=== PATIENT | male | born 1950 | race Caucasian/White ===

== ENCOUNTER 2016-09-30 15:26 | Emergency (ER) | payer MEDICARE ==
[2016-09-30 15:49] VITALS: TEMP 98.3
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
[2016-09-30 17:25] LABS: Appearance,Urine Clear (Clear); Bacteria,Urine Rare /hpf; Bilirubin,Urine Negative (Negative); Glucose,Urine (UA) Negative (Negative); Ketones,Urine Negative (Negative); Leukocyte Esterase,Urine Negative (Negative); Mucus,Urine Rare /hpf; Nitrite,Urine Negative (Negative); Particle Count 1410; Protein,Urine 1+ (Negative); RBC,Urine <1 /hpf (0-5); Specific Gravity,Urine 1.017 (1.001-1.035); UA Billing (MACRO vs. MICRO) MICRO; Urobilinogen,Urine <2.0 mg/dL (<2.0); WBC,Urine 1 /hpf (0-5)
--- NOTE | 2016-09-30 17:37 | XR ---
EXAMINATION TYPE: XR lumbar spine 2 or 3V DATE OF EXAM: 09/30/2016 5:26 PM COMPARISON: NONE HISTORY: Back pain TECHNIQUE: 3 views FINDINGS: The vertebra have fairly normal alignment. There is mild spurring of the endplates througho ut the lumbar spine. There is no compression fracture. Posterior elements are intact. Sacroiliac join ts appear normal. There is slight narrowing at L3-4 disc space. IMPRESSION: Mild spondylotic changes. No fracture.
[2016-09-30] MEDS ORDERED: KETOROLAC 60 MG/2 ML VIAL IM STA (17:48)
[2016-09-30] MEDS ORDERED: amLODIPine 5 MG TAB PO STA (18:55)
[2016-09-30 19:05] VITALS: BP 177/97; PULSE 83; RESP 16
== END 2016-09-30 18:59 | disposition home or self-care (01) ==
LOC: EC 15:26
DX: M54.5 Low back pain (principal); R10.9 Unspecified abdominal pain; M25.551 Pain in right hip; Z79.899 Other long term (current) drug therapy
CPT/HCPCS: 81001; 87086; 72100; 99284; 96372; J1885

== ENCOUNTER 2016-10-19 10:37 | Inpatient (IN) | payer MEDICARE ==
--- NOTE | 2016-10-19 10:52 | ED ---
SOB HPI - General Chief Complaint: Shortness of Breath Stated Complaint: SOB Time Seen by Provider: 10/19/16 10:40 Source: patient, EMS Mode of arrival: EMS Limitations: no limitations - History of Present Illness Initial Comments: Patient was seen in Dr. Ball of his states this morning he was sent from Dr. Ball office and is complaining about shortness of breath also was seen here the chest pain he is quite vague about his chest pain he said it's worse with exertion been coughing up some phlegm and chest pain gets worse when he takes a deep breath. Denies any fever and chills abdominal pain any frequency urgency dysuria denies any symptoms of TIA or CVA - Related Data Home Medications Medication Instructions Recorded Confirmed Acetaminophen Tab [Tylenol Tab] 650 mg PO Q6H PRN 09/30/16 10/19/16 Krill Oil 500 mg PO DAILY 09/30/16 10/19/16 Multivitamins, Thera [Multivitamin 1 tab PO DAILY 09/30/16 10/19/16 (formulary)] Super Beta Prostate Support 1 tab PO DAILY 09/30/16 10/19/16 Previous Rx's Medication Instructions Recorded Cyclobenzaprine [Flexeril] 10 mg PO TID #20 tab 09/30/16 Naproxen 500 mg PO Q12HR 14 Days 09/30/16 amLODIPine [Norvasc] 5 mg PO DAILY #30 tab 09/30/16 Allergies Allergy/AdvReac Type Severity Reaction Status Date / Time No Known Allergies Allergy Verified 10/19/16 11:44 Review of Systems ROS Statement: Those systems with pertinent positive or pertinent negative responses have been documented in the HPI. ROS Other: All systems not noted in ROS Statement are negative. Past Medical History Past Medical History: No Reported History History of Any Multi-Drug Resistant Organisms: None Reported Past Surgical History: No Surgical Hx Reported Past Psychological History: No Psychological Hx Reported Smoking Status: Never smoker Past Alcohol Use History: None Reported Past Drug Use History: None Reported General Exam - General Exam Comments Initial Comments: General: The patient is awake and alert, in via distress Skin: Skin is warm and dry and no rashes or lesions are noted. Eye: Pupils are equal, round and reactive to light, extra-ocular movements are intact; there is normal conjunctiva bilaterally. Ears, nose, mouth and throat: There are moist mucous membranes and no oral lesions. Neck: The neck is supple, there is no tenderness Cardiovascular: There is a regular rate and rhythm. No murmur, rub or gallop is appreciated. Respiratory: To auscultation bilateral, raccoons bilaterally Gastrointestinal: Soft, non-distended, non-tender abdomen without masses or organomegaly noted. There is no rebound or guarding present. Bowel sounds are unremarkable. Back: There is no tenderness to palpation in the midline. There is no obvious deformity. Musculoskeletal: Normal ROM, no tenderness, There is no pedal edema. There is no calf tenderness or swelling. No cords were appreciated. Neurological: CN II-XII intact, Cranial nerves III through XII are intact. There are no obvious motor or sensory deficits. Coordination appears grossly intact. Speech is normal. Psychiatric: Cooperative, appropriate mood & affect, normal judgment. Limitations: no limitations Course Vital Signs 10/19/16 10/19/16 10/19/16 10:40 13:22 13:27 Temperature 97.7 F Pulse Rate 90 99 Respiratory 26 H 32 H Rate Blood Pressure 158/113 O2 Sat by Pulse 96 96 Oximetry EKG is normal sinus rhythm ventricular rate is 86 MN interval is 152 QRS duration is 88 QT/QTC 372/445 review of this EKG has some artifacts in leads [address] elevation or ST depression noticed any other lites Medical Decision Making - Lab Data Result diagrams: 10/19/16 10:54 10/19/16 10:54 Lab Results 10/19/16 10/19/16 10/19/16 Range/Units 10:54 10:54 10:54 WBC 21.0 H (3.8-10.6) k/uL RBC 4.89 (4.30-5.90) m/uL Hgb 14.3 (13.0-17.5) gm/dL Hct 42.1 (39.0-53.0) % MCV 86.1 (80.0-100.0) fL MCH 29.3 (25.0-35.0) pg MCHC 34.0 (31.0-37.0) g/dL RDW 13.3 (11.5-15.5) % Plt Count 403 (150-450) k/uL Neutrophils % 94 % Lymphocytes % 2 % Monocytes % 4 % Eosinophils % 0 % Basophils % 0 % Neutrophils # 19.6 H (1.3-7.7) k/uL Lymphocytes # 0.3 L (1.0-4.8) k/uL Monocytes # 0.8 (0-1.0) k/uL Eosinophils # 0.0 (0-0.7) k/uL Basophils # 0.0 (0-0.2) k/uL PT (9.0-12.0) sec INR (<1.1) APTT (22.0-30.0) sec D-Dimer (<0.60) mg/L FEU Sodium 138 (137-145) mmol/L Potassium 6.0 H (3.5-5.1) mmol/L Chloride 102 (98-107) mmol/L Carbon Dioxide 13 L (22-30) mmol/L Anion Gap 23 mmol/L BUN 173 H* (9-20) mg/dL Creatinine 11.90 H* (0.66-1.25) mg/dL Est GFR (MDRD) Af Amer 5 (>60 ml/min/1.73 sqM) Est GFR (MDRD) Non-Af 4 (>60 ml/min/1.73 sqM) Glucose 150 H (74-99) mg/dL Calcium 9.4 (8.4-10.2) mg/dL Total Bilirubin 0.5 (0.2-1.3) mg/dL AST 28 (17-59) U/L ALT 82 H (21-72) U/L Alkaline Phosphatase 104 (38-126) U/L Total Creatine Kinase 214 H (55-170) U/L CK-MB (CK-2) 13.8 H* (0.0-2.4) ng/mL CK-MB (CK-2) Rel Index 6.4 Troponin I <0.012 (0.000-0.034) ng/mL NT-Pro-B Natriuret Pep pg/mL Total Protein 7.2 (6.3-8.2) g/dL Albumin 3.6 (3.5-5.0) g/dL 10/19/16 10/19/16 Range/Units 10:54 10:54 WBC (3.8-10.6) k/uL RBC (4.30-5.90) m/uL Hgb (13.0-17.5) gm/dL Hct (39.0-53.0) % MCV (80.0-100.0) fL MCH (25.0-35.0) pg MCHC (31.0-37.0) g/dL RDW (11.5-15.5) % Plt Count (150-450) k/uL Neutrophils % % Lymphocytes % % Monocytes % % Eosinophils % % Basophils % % Neutrophils # (1.3-7.7) k/uL Lymphocytes # (1.0-4.8) k/uL Monocytes # (0-1.0) k/uL Eosinophils # (0-0.7) k/uL Basophils # (0-0.2) k/uL PT 11.9 (9.0-12.0) sec INR 1.2 (<1.1) APTT 21.5 L (22.0-30.0) sec D-Dimer 4.36 H (<0.60) mg/L FEU Sodium (137-145) mmol/L Potassium (3.5-5.1) mmol/L Chloride (98-107) mmol/L Carbon Dioxide (22-30) mmol/L Anion Gap mmol/L BUN (9-20) mg/dL Creatinine (0.66-1.25) mg/dL Est GFR (MDRD) Af Amer (>60 ml/min/1.73 sqM) Est GFR (MDRD) Non-Af (>60 ml/min/1.73 sqM) Glucose (74-99) mg/dL Calcium (8.4-10.2) mg/dL Total Bilirubin (0.2-1.3) mg/dL AST (17-59) U/L ALT (21-72) U/L Alkaline Phosphatase (38-126) U/L Total Creatine Kinase (55-170) U/L CK-MB (CK-2) (0.0-2.4) ng/mL CK-MB (CK-2) Rel Index Troponin I (0.000-0.034) ng/mL NT-Pro-B Natriuret Pep 240 pg/mL Total Protein (6.3-8.2) g/dL Albumin (3.5-5.0) g/dL Critical Care Time Total Critical Care Time: 60 Critical Care Time: Is in came in with a severe distress, and initial labs showed white count of 21 with a significant left shift d-dimer is 1.35 his creatinine is 11.90 his BUN is 173 troponin is negative is a poor historian was started on Rocephin 2 g of Zithromax for pneumonia (do a trial of BiPAP for his CHF symptoms and examined Lasix 80 mg a feet diaphoresis then now considering his respiratory rate of 30 given need to come in to ICU so he could be evaluated by nephrology as well will need a pulmonary medicine on board Disposition Clinical Impression: Congestive heart failure, Pneumonia, Acute renal failure, Acute respiratory distress Disposition: ADMITTED IP TO THIS HOSP Condition: Fair
[2016-10-19 11:23] LABS: Basophils % (A) 0 %; CH 29.1; Eosinophils % (A) 0 %; HCT 42.1 % (39.0-53.0); HDW 2.76; HGB 14.3 gm/dL (13.0-17.5); Luc # (Auto) 0.16; Luc % (Auto) 1; Lymphocytes # (A) 0.3 k/uL (1.0-4.8); Lymphocytes % (A) 2 %; MCH 29.3 pg (25.0-35.0); MCV 86.1 fL (80.0-100.0); Mean Platelet Volume 7.2; Monocytes # (A) 0.8 k/uL (0-1.0); Monocytes % (A) 4 %; Neutrophils # (A) 19.6 k/uL (1.3-7.7); Neutrophils % (A) 94 %; RBC 4.89 m/uL (4.30-5.90); RDW 13.3 % (11.5-15.5); WBC (Perox) 20.26
[2016-10-19 11:29] LABS: Calcium 9.4 mg/dL (8.4-10.2); Total Bilirubin 0.5 mg/dL (0.2-1.3); Total Protein 7.2 g/dL (6.3-8.2)
[2016-10-19 11:31] LABS: INR 1.2 (<1.1); Prothrombin Time 11.9 sec (9.0-12.0)
--- NOTE | 2016-10-19 11:33 | XR ---
EXAMINATION TYPE: XR chest 2V DATE OF EXAM: 10/19/2016 11:19 AM COMPARISON: None HISTORY: 66-year-old male difficulty breathing TECHNIQUE: Frontal and lateral views FINDINGS: Right heart margin obscured by adjacent pleural parenchymal disease. Suspect moderate right pleural e ffusion with adjacent opacity. Mild interstitial prominence. IMPRESSION: 1. Correlate for possible mild CHF. 2. Moderate right pleural effusion with adjacent atelectasis and/or consolidation. Follow-up after tr eatment to ensure clearance.
[2016-10-19 11:41] LABS: Partial Thromboplastin Time 21.5 sec (22.0-30.0)
[2016-10-19 11:45] LABS: Creatine Kinase 214 U/L (55-170)
[2016-10-19 11:58] LABS: Troponin I <0.012 ng/mL (0.000-0.034)
[2016-10-19 12:04] LABS: Creatine Kinase MB 13.8 ng/mL (0.0-2.4)
[2016-10-19] MEDS ORDERED: IPRATROPIUM-ALBUTEROL 3 ML NEB INHALATION STA (13:23)
[2016-10-19] MEDS ORDERED: AZITHROMYCIN 500 MG in SODIUM CHLORIDE 0.9% 250 ML IVPB STA (13:28)
[2016-10-19] MEDS ORDERED: FUROSEMIDE 10 MG/ML 10 ML VIAL IV STA (13:29)
[2016-10-19] MEDS ORDERED: FUROSEMIDE 10 MG/ML 4 ML VIAL IV STA (13:29)
[2016-10-19] MEDS ORDERED: cefTRIAXone 2,000 MG in SODIUM CHLORIDE 0.9% 100 ML IVPB STA (13:29)
[2016-10-19] MEDS ORDERED: NALOXONE 0.4 MG/ML 1 ML VIAL IV PRN (13:35)
[2016-10-19] MEDS ORDERED: ACETAMINOPHEN TAB 325 MG TAB PO PRN (13:35)
[2016-10-19 15:31] LABS: Glucose,Whole Blood 141 mg/dL (75-99)
[2016-10-19] MEDS: IPRATROPIUM 0.5 MG/2.5 ML NEBU INHALATION SCH ×2 (15:34→19:35)
--- NOTE | 2016-10-19 17:42 | US ---
EXAMINATION TYPE: US kidneys/renal and bladder DATE OF EXAM: 10/19/2016 5:26 PM COMPARISON: NONE CLINICAL HISTORY: 66-year-old male back pain elevated creatinine 11.9. The exam performed portable in ICU. TECHNIQUE: Multiple sonographic images of the kidneys and bladder were obtained. FINDINGS: Right Kidney: 11.8 x 5.9 x 6.6 cm without hydronephrosis. There is a small 1.3 cm upper pole cortica l cyst. Left Kidney: 13.5 x 7.5 x 6.1 cm with [id number] hydronephrosis. Rail Switchman notes: No definit e stones seen, difficult to image left kidney as patient is morbidly obese and immobile. Bladder: Prominently urine distended. IMPRESSION: 1. Mild to moderate left-sided hydronephrosis. 2. Prominent urinary distention of the bladder.
[2016-10-19 17:46] LABS: Phosphorous 12.7 mg/dL (2.5-4.5)
[2016-10-19 17:48] LABS: Uric Acid 18.3 mg/dL (3.5-8.5)
[2016-10-19] MEDS: SODIUM BICARBONATE TAB 650 MG TAB PO SCH ×2 (18:11→21:30)
[2016-10-19] MEDS: CYCLOBENZAPRINE 10 MG TAB PO SCH ×2 (18:11→21:30)
[2016-10-19 18:19] LABS: Appearance,Urine Clear (Clear); Bacteria,Urine Rare /hpf; Bilirubin,Urine Negative (Negative); Glucose,Urine (UA) Negative (Negative); Ketones,Urine Negative (Negative); Leukocyte Esterase,Urine Trace (Negative); Nitrite,Urine Negative (Negative); Particle Count 1396; Protein,Urine Negative (Negative); RBC,Urine 3 /hpf (0-5); Specific Gravity,Urine 1.009 (1.001-1.035); UA Billing (MACRO vs. MICRO) MICRO; Urobilinogen,Urine <2.0 mg/dL (<2.0); WBC,Urine 1 /hpf (0-5)
[2016-10-19 20:53] LABS: Potassium 4.8 mmol/L (3.5-5.1)
[2016-10-19] MEDS: HEPARIN SODIUM,PORCINE 5,000 UNIT/ML 1 ML VIAL SQ SCH (21:30)
[2016-10-20 00:09] LABS: Calcium 9.3 mg/dL (8.4-10.2); Potassium 4.6 mmol/L (3.5-5.1)
[2016-10-20 05:05] LABS: Calcium 9.3 mg/dL (8.4-10.2); Magnesium 3.2 mg/dL (1.6-2.3); Phosphorous 7.7 mg/dL (2.5-4.5); Total Bilirubin 0.6 mg/dL (0.2-1.3); Total Protein 6.6 g/dL (6.3-8.2)
[2016-10-20 05:08] LABS: INR 1.2 (<1.1)
[2016-10-20 05:28] LABS: Basophils % (A) 0 %; CH 28.4; CHCM 31.5; Eosinophils # (A) 0.1 k/uL (0-0.7); Eosinophils % (A) 0 %; HCT 43.4 % (39.0-53.0); HDW 2.64; HGB 14.3 gm/dL (13.0-17.5); Luc # (Auto) 0.19; Luc % (Auto) 1; Lymphocytes # (A) 0.5 k/uL (1.0-4.8); Lymphocytes % (A) 4 %; MCH 29.8 pg (25.0-35.0); MCV 90.5 fL (80.0-100.0); Mean Platelet Volume 7.4; Monocytes # (A) 0.8 k/uL (0-1.0); Monocytes % (A) 6 %; Neutrophils # (A) 11.9 k/uL (1.3-7.7); Neutrophils % (A) 88 %; RBC 4.79 m/uL (4.30-5.90); RDW 13.4 % (11.5-15.5); WBC 13.5 k/uL (3.8-10.6); WBC (Perox) 14.48
[2016-10-20] MEDS: LEVALBUTEROL NEB (CONC) 1.25 MG/0.5 ML AMP INHALATION SCH ×3 (07:24→20:59)
[2016-10-20] MEDS: IPRATROPIUM 0.5 MG/2.5 ML NEBU INHALATION SCH ×3 (07:24→20:59)
--- NOTE | 2016-10-20 07:25 | XR ---
EXAMINATION TYPE: XR chest 1V portable DATE OF EXAM: 10/20/2016 6:35 AM Comparison: 10/29/2016 Clinical History: 66-year-old male with right pneumonia Findings: Right heart margin remains obscured by adjacent pleural parenchymal disease. Mild interstitial promin ence is unchanged. Redemonstrated moderate-sized right pleural effusion with adjacent atelectasis and /or consolidation. Impression: Overall similar moderate right pleural effusion with adjacent atelectasis and/or consolidation. Inter stitial prominence could be chronic or could reflect mild CHF.
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
[2016-10-20] MEDS: CYCLOBENZAPRINE 10 MG TAB PO SCH ×3 (09:17→21:38)
[2016-10-20] MEDS: CALCIUM ACETATE 667 MG CAP PO SCH ×3 (09:17→18:09)
[2016-10-20] MEDS: amLODIPine 5 MG TAB PO SCH (09:17)
[2016-10-20] MEDS: PANTOPRAZOLE 40 MG TABLET PO SCH ×2 (09:17→18:09)
[2016-10-20] MEDS: SODIUM BICARBONATE TAB 650 MG TAB PO SCH ×3 (09:18→21:38)
[2016-10-20] MEDS: HEPARIN SODIUM,PORCINE 5,000 UNIT/ML 1 ML VIAL SQ SCH ×2 (09:18→21:33)
[2016-10-20] MEDS: NYSTATIN 100,000 UNIT/ML SUSP 500,000 UNIT/5 ML CUP PO SCH ×4 (10:05→21:38)
[2016-10-20] MEDS: AZITHROMYCIN 500 MG in SODIUM CHLORIDE 0.9% 250 ML IVPB SCH (10:05)
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
--- NOTE | 2016-10-20 12:27 | CT ---
EXAMINATION TYPE: CT ChestAbdPelvis wo con DATE OF EXAM: 10/20/2016 11:44 AM COMPARISON: Correlation radiograph 10/22/2016 HISTORY: 66-year-old male with right sided pneumonia and hydronephrosis TECHNIQUE: Contiguous axial scanning of the chest, abdomen, and pelvis without IV contrast. Coronal a nd sagittal reconstructions performed. CT DLP: 1802.50 mGycm Automated exposure control for dose reduction was used. FINDINGS: CHEST: The heart is normal size without pericardial effusion. Very mild coronary vessel calcifications are p resent. Ascending aorta mildly aneurysmal at 4.0 cm; convention arch vessel branching anatomy. Borderline ane urysm upper descending thoracic aorta at 3.0 cm dilatation of the lower descending thoracic aorta 2.6 cm. No thoracic lymphadenopathy identified. There is a moderate free-flowing right-sided pleural effusion with atelectatic collapse of the right lower lobe. Subsegmental collapse may also extend to involve the lateral right middle lobe. Calcified granuloma right middle lobe. Some minimal patchy atelectasis at the left base. ABDOMEN: Noncontrast appearance of the liver, gallbladder, adrenal glands, spleen with couple small anterior s plenules, and atrophic pancreas show no gross abnormality. There is perinephric stranding on the right with stranding in the renal sinus region as well without appreciable hydronephrosis. No suspicious calcification along the course of either ureter. There is of mild to moderate hydronephrosis on the left as seen on recent ultrasound. There is an exo phytic 3.2 cm soft tissue density lesion from the lower pole of the left kidney Moderate-sized fatty umbilical hernia measuring 5.8 cm. There is mild fat stranding in this region th at could reflect mild inflammation. No abnormal fluid or mass effect onto the anterior abdominal wall . Some clustered prominent 7 mm left periaortic retroperitoneal lymph nodes are nonspecific. Otherwise, no mesenteric or retroperitoneal lymphadenopathy. Scattered mild to moderate stool. A few diverticula within the proximal sigmoid colon. Pelvis: Noriega catheter decompresses the bladder. There appears to be moderate circumferential wall thickening of the collapsed bladder with nondependent intraluminal air relating to indwelling catheter. The prostate gland is enlarged measuring 6.3 cm wide and 7.2 cm craniocaudal. No abnormal fluid collection in the pelvis or pelvic lymphadenopathy seen. Bones: Mild degenerative changes of the hips. Degenerative change at the left greater than right SI joints. Additional degenerative changes throughout the mid to lower lumbar spine with bridging anterior endpl ate spondylosis mid thoracic spine suggestive of DISH. No osseous destructive process. IMPRESSION: 1. MODERATE FREE-FLOWING RIGHT PLEURAL EFFUSION WITH COMPRESSIVE COLLAPSE OF THE RIGHT LOWER LOBE AND SUBSEGMENTAL ATELECTASIS LATERAL RIGHT MIDDLE LOBE. MOST IF NOT ALL OF THE RIGHT BASILAR OPACITY DAVON EARS TO RELATE TO THE COLLAPSE. CONSIDER DIAGNOSTIC AND THERAPEUTIC THORACENTESIS. 2. MARKED PROSTATOMEGALY (UP TO 7.2 CM). CORRELATE FOR BPH AND BLADDER OUTLET OBSTRUCTION. THE BLADDE R IS CURRENTLY DECOMPRESSED BY NORIEGA CATHETER BUT SHOWS WALL THICKENING SUGGESTING CHRONIC BLADDER WA LL HYPERTROPHY. 3. MILD TO MODERATE LEFT-SIDED HYDRONEPHROSIS. NO OBSTRUCTING CALCULUS IS SEEN. POSSIBLY SECONDARY TO BLADDER OBSTRUCTION. 4. ASYMMETRIC RIGHT-SIDED PERINEPHRIC STRANDING. CORRELATE FOR POSSIBLE PYELOSINUS BACKFLOW FROM A SM ALL CALYCEAL RUPTURE RELAXING THE COLLECTING SYSTEM VERSUS PYELONEPHRITIS. 5. INDETERMINATE 3.2 CM SOFT TISSUE LESION EXOPHYTIC FROM THE LOWER POLE LEFT KIDNEY. DIFFERENTIAL CO NSIDERATIONS INCLUDE SOLID MASS SUCH RCC OR A COMPLICATED CYST. THIS COULD NOT BE VISUALIZED ON UL TRASOUND. RECOMMEND MRI OR RENAL MASS PROTOCOL CT. 6. SOME CLUSTERED PROMINENT LEFT PARA-AORTIC LYMPH NODES IN THE RETROPERITONEUM MAY BE REACTIVE/POST INFLAMMATORY. A 3 MONTH FOLLOW-UP EXAM CAN REASSESS FOR STABILITY. 7. MILD ANEURYSM ASCENDING AORTA (4.0 CM).
--- NOTE | 2016-10-20 13:26 | NM ---
EXAMINATION TYPE: NM pul vent and perfuse DATE OF EXAM: 10/20/2016 1:15 PM COMPARISON: NONE HISTORY: Rule out PE, difficulty breathing, cough, wheezing, pneumonia TECHNIQUE: Utilizing inhalation of 71.1 mCi Tc 99m DTPA aerosol and intravenous injection of 5.5 mCi of Tc 99m MAA, ventilation and perfusion images are acquired post injection in multiple projections. FINDINGS: There is no evidence of moderate or large sized mismatched defects. There is a matched defect within the mid right lung. There is asymmetry within the lung perfusion and ventilation with greater ventilation perfusion on the left compared to the right. This exam is compared with the chest x-ray of 10/30/2016. No triple matched defects are evident. The a eration on the right compared to the left may be compatible with the ventilation/perfusion findings. IMPRESSION: Intermediate probability for pulmonary embolism
--- NOTE | 2016-10-20 13:56 | US ---
EXAMINATION TYPE: US chest DATE OF EXAM: 10/20/2016 1:29 PM COMPARISON: CXR in PACS CLINICAL HISTORY: pleural effusion. Right pleural effusion EXAM MEASUREMENTS: Right Pleural Effusion fluid pocket: 7.3 cm Right skin to fluid thickness: 4.7 cm Lung persistent in images Right side marked for possible thoracentesis outside the dept. Pulmonologists are able to review the images in the patient?s EMR. IMPRESSIONS: 1. Right pleural effusion
--- NOTE | 2016-10-20 13:57 | CONS ---
DATE OF CONSULTATION: 10/20/2016 REASON FOR CONSULTATION: General ICU care and care and sleep disorder breathing and sleep apnea and acute renal failure. HISTORY OF PRESENTING ILLNESS: Mr. Chloe Robbins is a morbidly obese 66-year-old male who was seen, evaluated and examined in the ICU. This patient recently started seeing Dr. Ball and has a history of hypertension. Patient presented into the emergency department with increasing shortness of breath, was admitted. Patient was sent from Dr. Ball' office related to that problem, has some intermittent chest pain and some cough as well. Patient was found to have been in acute renal failure and has been admitted to hospital. Poon catheter has been placed. Patient has been voiding very well. Of note that as per discussion with RN, Poon catheter was somewhat difficulty to place though. The patient however, feels better today compared to yesterday in terms of respiratory issues and overall feeling of well being. PAST SURGICAL HISTORY: Unremarkable and noncontributory. PAST MEDICAL HISTORY: Recent finding of hypertension and possibly sleep apnea with extensive history of snoring and apneic events. ALLERGIES: No known drug allergy. Medications at home include: 1. Norvasc 5 mg daily. 2. Naprosyn 5 mg 2 times a day. FAMILY HISTORY AND SOCIAL HISTORY: Denies any smoking or ethanol abuse. Denies any substance use. REVIEW OF SYSTEMS: HEAT TREAT INSPECTOR: Denies any seizure-like activity, loss of consciousness, hemiparesis. Does feel some generalized weakness though. CARDIORESPIRATORY: Has some cough, shortness of breath, phlegm is clear though. GI/: Otherwise unremarkable and noncontributory. MUSCULOSKELETAL/DERMATOLOGICAL: Otherwise unremarkable and noncontributory. The most recent vitals include blood pressure is 122/64, which is down from 145/71, respiratory rate is in mid 20s, down from mid 30s, heart rate is 107, T-max is 99.5. Saturation of 94% on 4 liters oxygen. HEENT EXAMINATION: Oral thrush is present with a small ulcer on the lateral aspect of the tongue on the left side. Inadequate oral hygiene though. Nasal mucosa is congested. NECK: Supple. Neck veins are prominent, but no significant JVD or bruits present. LUNGS: Bilateral poor air entry is present without significant rales, rhonchi or rub. HEART: Regular rate and rhythm. S1 and S2 audible. No gallop, rub or murmur. ABDOMEN: Distended but soft. No rebound or rigidity. EXTREMITIES: Trace edema. NEUROLOGICAL EXAMINATION: Awake and alert. No focal neurological deficits. Neuro exam is otherwise unremarkable. The studies performed include EKG in the emergency department revealed normal sinus rhythm. Chest x-ray performed in the emergency department reviewed and suggestive of borderline cardiomegaly, interstitial edema, pleural effusion has been noted with subsegment atelectasis on the right side. The ultrasound of the abdomen and pelvis also reviewed and revealed left-sided hydronephrosis and distended urinary bladder. The chest x-ray performed today also reviewed and compared with the prior x-ray; continues to show small to moderate pleural effusion with basal atelectasis with borderline cardiomegaly. The other laboratory data reviewed. White cell count is down to 13,000 from 21,000, hemoglobin of 14 and hematocrit 43, platelet count of 328,000 down from 403. PT, INR within normal limits. D-dimer is 4.36. PTT is 21. Chemistry: Sodium is 142 up to 147 now. Potassium is 4.6. BUN and creatinine on arrival was 173/11.9, has improved to 140 and 5.4 today just with evacuation and rehydration. Glucose was 150 on arrival. Uric acid was 18.3, phosphorus 12.7 down to 7.7, AST and ALT are 28 and 82 down to 32 and 75. Alkaline phosphatase is normal. CK-MB is 13.8. Troponin is normal. BNP is 240, albumin is 3.3. Urinalysis shows a few WBCs, RBCs are seen with trace bacteria. Current medications reviewed include Tylenol, amlodipine, Zithromax, Rocephin, calcium, Flexeril, subcu heparin, ipratropium, unit dose updraft 3 times a day. Levalbuterol 3 times a day, naloxone, nystatin, Protonix, bicarb tablets started by the renal service. IMPRESSION: 1. Acute renal failure, likely related to obstructive uropathy and enlarged prostate with hydronephrosis on the left side. 2. Severe degree of morbid obesity with likely obstructive sleep apnea, to be evaluated further in outpatient setting. 3. Right lower lobe atelectasis versus pneumonia with early sepsis cannot be excluded. Agree with IV antibiotics at this point of time. 4. Early chronic obstructive pulmonary disease and chronic persistent asthma. Patient to be placed on breathing treatments. 5. Oral thrush. Patient will be placed on Diflucan and oral nystatin swish and swallow. 6. Intravascular volume depletion and dehydration. Patient is gently being rehydrated with IV fluids as per renal service recommendations along with bicarbonate replacement. We will follow up closely. Further recommendations pending. Plan of care as per clinical response.
--- NOTE | 2016-10-20 18:53 | PN ---
This 66 -year-old gentleman who was admitted with acute right lower lobe pneumonia, also had pleural effusion. The patient also seen by Dr. Tabor. The patient also had postobstructive uropathy as well. The patient has severe morbid obesity. The patient diuresed significantly after Lasix. Multiple consultants are following the patient closely. The creatinine is elevated up to 5.4 today and 7.7 and albumin 3.3 and cholesterol is 210 and LDL is 145. Patient being closely monitored. White count improved to. The patient on empiric antibiotics. Past medical history reviewed. REVIEW OF SYSTEMS: CARDIOVASCULAR: No angina or palpitations. RESPIRATORY: As mentioned earlier. GI: As mentioned earlier. : No dysuria. CENTRAL NERVOUS SYSTEM: Diffusely weak. Current medications are reviewed and include: 1. Tylenol 650 q.4h p.r.n. 2. Norvasc 5 mg daily. 3. Zithromax 500 mg daily. 4. PhosLo 1334 p.o. t.i.d. 5. Rocephin 1 gram daily. 6. Flexeril 10 mg daily. 7. Diflucan 100 mg daily. 8. Heparin 5000 subcu b.i.d. 9. Atrovent. 10. Xopenex 1.25 q.i.d. 11. Mycostatin. 12. Protonix 40 mg daily. 13. Sodium bicarb. PHYSICAL EXAMINATION: Patient is alert and oriented x3, pulse 107, blood pressure 120/62, respirations 26, temperature is 99.4, pulse ox 94% on room air. HEENT: Conjunctivae normal. NECK: No jugular venous distention. CARDIOVASCULAR: S1, S2 muffled. RESPIRATORY: Breath sounds diminished at the bases, bilateral scattered rhonchi and crackles. ABDOMEN: Soft, nontender. No mass palpable. LEGS: No edema. No swelling. Nervous system: Higher functions as mentioned earlier. Moves all four limbs. No focal deficits. LYMPHATICS: No lymph nodes palpable in the neck, axillae or groin. SKIN: No ulcer, rash or bleeding. LABS: WBC 13.3, hemoglobin 14.2, sodium 147, potassium 4, CO2 16, BUN is 140, creatinine is 5.40, glucose 154, phosphorus 7.7. Albumin is 3.3 and cholesterol is 210 and LDL is 145. ASSESSMENT: 1. Acute right lower lobe pneumonia with possible pleural effusion and sepsis and acute hypoxic respiratory failure. 2. Acute renal failure, possibly prerenal failure as well as postobstructive renal failure with acute tubular necrosis. 3. Acute hyperkalemia. 4. Change in mental status, metabolic encephalopathy, acute, multifactorial. 5. Increased WBC. 6. Hematuria. 7. Increased random blood sugars. 8. Increased uric acid. 9. Increased CK with possible acute rhabdomyolysis. 10. Increased ALT. 11. Obesity with body mass index of 45. 12. FULL CODE. 13. Possible chronic obstructive pulmonary disease. 14. Elevated uric acid. 15. Hyperlipidemia. 16. Right pleural effusion. 17. Benign prostatic hypertrophy. 18. Mild to moderate left-sided hydronephrosis. 19. Retroperitoneal adenopathy, possibly inflammatory in nature, recommend a three-month follow-up. 20. Mild aortic aneurysm 4 cm. RECOMMENDATIONS AND DISCUSSION: In this 66-year-old gentleman who presented with multiple complex medical issues, we will monitor the patient closely. Continue the current medications and continue symptomatic treatment. Continue empiric antibiotics. Continue to monitor the creatinine closely. Fluid and electrolyte balance and empiric antibiotics. Lasix has been given one time and we will continue to monitor along nephrology and as well as Dr. Tabor. Further recommendations to follow. Prognosis guarded. MTDD
[2016-10-20 20:07] LABS: Glucose,Whole Blood 185 mg/dL (75-99)
[2016-10-20] MEDS: ULORIC 40MG TAB PO SCH (21:33)
[2016-10-20] MEDS: INSULIN LISPRO (humaLOG) 300 UNIT/3 ML VIAL SQ SCH (21:33)
[2016-10-21 05:02] LABS: Basophils # (A) 0.1 k/uL (0-0.2); Basophils % (A) 1 %; CH 28.9; CHCM 32.5; Eosinophils # (A) 0.1 k/uL (0-0.7); Eosinophils % (A) 1 %; HCT 38.7 % (39.0-53.0); HDW 2.67; HGB 12.6 gm/dL (13.0-17.5); Luc % (Auto) 2; Lymphocytes # (A) 1.1 k/uL (1.0-4.8); Lymphocytes % (A) 11 %; MCH 29.1 pg (25.0-35.0); MCHC 32.5 g/dL (31.0-37.0); MCV 89.5 fL (80.0-100.0); Mean Platelet Volume 6.7; Monocytes # (A) 0.7 k/uL (0-1.0); Monocytes % (A) 7 %; Neutrophils % (A) 79 %; RBC 4.33 m/uL (4.30-5.90); RDW 13.8 % (11.5-15.5); WBC 10.1 k/uL (3.8-10.6); WBC (Perox) 10.28
[2016-10-21 05:40] LABS: Calcium 8.9 mg/dL (8.4-10.2); Magnesium 2.5 mg/dL (1.6-2.3); Phosphorous 2.9 mg/dL (2.5-4.5); Potassium 4.4 mmol/L (3.5-5.1); Total Bilirubin 0.5 mg/dL (0.2-1.3); Total Protein 6.2 g/dL (6.3-8.2)
--- NOTE | 2016-10-21 07:18 | XR ---
EXAMINATION TYPE: XR chest 1V portable DATE OF EXAM: 10/21/2016 6:44 AM COMPARISON: 10/20/2016 HISTORY: Cough TECHNIQUE: Single frontal view of the chest is obtained. FINDINGS: Right-sided consolidation and pleural effusion are stable. No sizable pneumothorax. Left l mireya clear. Heart size stable. Hypertrophic change of the spine noted. IMPRESSION: 1. Right-sided infiltrate and pleural effusion.
[2016-10-21 07:27] LABS: Glucose,Whole Blood 201 mg/dL (75-99)
[2016-10-21] MEDS: INSULIN LISPRO (humaLOG) 300 UNIT/3 ML VIAL SQ SCH ×4 (08:02→21:33)
[2016-10-21] MEDS: CALCIUM ACETATE 667 MG CAP PO SCH ×2 (08:02→12:44)
[2016-10-21] MEDS: PANTOPRAZOLE 40 MG TABLET PO SCH ×2 (08:03→17:22)
[2016-10-21] MEDS: amLODIPine 5 MG TAB PO SCH (08:03)
[2016-10-21] MEDS: TAMSULOSIN 0.4 MG CAP.ER.24H PO SCH (08:03)
[2016-10-21] MEDS: NYSTATIN 100,000 UNIT/ML SUSP 500,000 UNIT/5 ML CUP PO SCH ×4 (08:04→21:34)
[2016-10-21] MEDS: FLUCONAZOLE 100 MG TAB PO SCH (08:04)
[2016-10-21] MEDS: CYCLOBENZAPRINE 10 MG TAB PO SCH ×3 (08:04→21:34)
[2016-10-21] MEDS: HEPARIN SODIUM,PORCINE 5,000 UNIT/ML 1 ML VIAL SQ SCH ×2 (08:04→21:33)
[2016-10-21] MEDS: LEVALBUTEROL NEB (CONC) 1.25 MG/0.5 ML AMP INHALATION SCH ×3 (08:12→21:20)
[2016-10-21] MEDS: IPRATROPIUM 0.5 MG/2.5 ML NEBU INHALATION SCH ×3 (08:12→21:19)
[2016-10-21] MEDS: SODIUM BICARBONATE TAB 650 MG TAB PO SCH ×3 (09:36→21:35)
[2016-10-21] MEDS: AZITHROMYCIN 500 MG in SODIUM CHLORIDE 0.9% 250 ML IVPB SCH (09:48)
--- NOTE | 2016-10-21 11:38 | ECHOF ---
Referral Reason:assess LV function MEASUREMENTS -------- HEIGHT: 170.2 cm WEIGHT: 121.6 kg BP: 136/66 RVIDd: 3.3 cm (< 3.3) IVSd: 1.6 cm (0.6 - 1.1) LVIDd: 3.7 cm (3.9 - 5.3) LVPWd: 1.5 cm (0.6 - 1.1) IVSs: 2.1 cm LVIDs: 2.7 cm LVPWs: 1.6 cm LA Diam: 3.5 cm (2.7 - 3.8) LAESV Index (A-L): 19.06 ml/m Ao Diam: 3.7 cm (2.0 - 3.7) AV Cusp: 2.3 cm (1.5 - 2.6) MV EXCURSION: 10.694 mm (> 18.000) MV EF SLOPE: 38 mm/s (70 - 150) EPSS: 1.0 cm MV E Ash: 0.79 m/s MV DecT: 361 ms MV A Ash: 0.94 m/s MV E/A Ratio: 0.84 AV maxP.12 mmHg AV meanP.27 mmHg RAP: 5.00 mmHg RVSP: 27.98 mmHg FINDINGS -------- Sinus rhythm. This was a technically adequate study. The left ventricular size is normal. There is moderate concentric left ventricular hypertrophy. Overall left ventricular systolic function is normal with, an EF between 60 - 65 %. The right ventricle is mildly enlarged. Normal LA size by volume 22+/-6 ml/m2. The right atrium is normal in size. Aortic valve is trileaflet and is mildly thickened. There is mild aortic stenosis present. Peak/mean gradient across the Aortic Valve is 17.12mmHg / 10.27mmHg. Mild mitral annular calcification present. There is trace mitral regurgitation. Trace tricuspid regurgitation present. Right ventricular systolic pressure is normal at < 35 mmHg. The pulmonic valve is normal. There is no pulmonic regurgitation present. The aortic root is dilated measuring 3.7cm. There is no pericardial effusion. CONCLUSIONS -------- 1. Sinus rhythm. 2. Peak/mean gradient across the Aortic Valve is 17.12mmHg / 10.27mmHg. 3. Mild mitral annular calcification present. 4. There is trace mitral regurgitation. 5. Trace tricuspid regurgitation present. 6. Right ventricular systolic pressure is normal at < 35 mmHg. 7. The aortic root is dilated measuring 3.7cm. 8. There is no pericardial effusion. 9. This was a technically adequate study. 10. The left ventricular size is normal. 11. There is moderate concentric left ventricular hypertrophy. 12. Overall left ventricular systolic function is normal with, an EF between 60 - 65 %. 13. The right ventricle is mildly enlarged. 14. Normal LA size by volume 22+/-6 ml/m2. 15. Aortic valve is trileaflet and is mildly thickened. 16. There is mild aortic stenosis present. PEANUT FARMER: Qi Arauz RDCS
[2016-10-21 12:14] LABS: Glucose,Whole Blood 135 mg/dL (75-99)
[2016-10-21 13:39] VITALS: BMI 42.0
--- NOTE | 2016-10-21 14:14 | PN ---
Patient is seen for followup for acute kidney injury. Patient's renal function has improved significantly from the time of admission with creatinine going down from 11.9 to 1.4 mg/dL now. He did have significant urine retention, currently has an indwelling Poon catheter. Patient is awake, comfortable, not in any acute distress. He is not on any IV fluids and has been drinking a lot of plain water. His sodium is noted to be elevated at 152. On examination, blood pressure is 125/65, heart rate 83 per minute, he is afebrile. Examination of the heart, S1 and S2. Examination of the lungs, decreased breath sounds in the bases. Abdomen is soft, nontender. Examination of lower extremities shows no significant edema. PMO PROJECT MANAGER exam is grossly intact. Labs show sodium 152, potassium 4.4, BUN 51, serum creatinine 1.4 mg/dL. ASSESSMENT: 1. Acute kidney injury, mostly obstructive uropathy, currently significantly improved. Continue with indwelling Poon catheter for now. 2. Hypernatremia associated with free water deficit from polyuria with postobstructive diuresis. Patient is advised to continue to drink large amounts of the plain water; however, given his significant urine output of 5 L and 8 L, I will proceed with initiation of D5W at about 50 mL/h. We will repeat his electrolytes tomorrow morning. 3. Severe hyperphosphatemia associated with advanced renal failure. Phosphorus is now down to 2.9. We can discontinue the PhosLo as it has improved with improved renal function. PLAN: Start D5W ( ) an hour and DC PhosLo. Repeat labs in a.m.
[2016-10-21] MEDS: DEXTROSE 5% IN WATER 1,000 ML IV SCH (14:36)
[2016-10-21 15:03] LABS: Hemoglobin A1C 6.7 % (4.2-6.1)
[2016-10-21 17:34] LABS: Glucose,Whole Blood 116 mg/dL (75-99)
--- NOTE | 2016-10-21 17:59 | PN ---
This patient is seen, evaluated and examined. This is a 66-year-old male who came into the hospital with obstructive uropathy and acute renal failure. The patient has hydronephrosis as well; however, after placement of ( ) catheter, patient's urine output has been improved. Renal function continues to improve progressively. Patient has a history of likely obstructive sleep apnea, which is to be evaluated on an outpatient basis; also history of hypertension. He is awake and alert, breathing comfortably. He had a V/Q scan which I reviewed which is indeterminate; however, the clinical probability of DVT or PE is very low. A duplex ultrasound of the lower extremity, however, is pending. Patient does have right-sided pleural effusion which is a small to moderate, being monitored and observed. He is a high-risk candidate for thoracentesis, given the size of thoracic wall which is almost 5 cm, with a small amount of fluid. Patient is breathing more comfortably. I have discussed with the primary service. Plan is to keep the Poon catheter in and consult Urology. Will obtain an echocardiogram as well. Patient already has been started on Flomax. He is off of oxygen. Saturations are in the low 90s, though. Last set of vitals includes blood pressure 130/70, respiratory rate 24, pulse 90, temperature 98, saturation of 98% on 2 L, 92% to 93% on room air. HEENT EXAMINATION: Otherwise unremarkable. NECK: Supple without lymphadenopathy or jugular venous distention or carotid bruit. LUNGS: Bilateral good air entry is present without significant rales, rhonchi or rub. HEART: Regular rate, rhythm. ABDOMEN: Soft. NEUROLOGICAL EXAMINATION: Otherwise awake and alert. Labs reviewed. Medications reviewed. 1. Norvasc 5 mg daily. 2. Zithromax 500 mg daily. 3. Calcium acetate. 4. Rocephin. 5. Fluconazole. 6. Heparin. 7. DuoNeb unit dose. 8. Ipratropium. 9. Xopenex. 10. Protonix 11. Bicarb. 12. Flomax. Laboratory data reviewed. White cell count is down to 10,000. Hemoglobin 12, hematocrit 38. Platelet count 272,000. Sodium is 152, potassium 4.4. Chloride is 117. BUN and creatinine are 51 and 1.44. IMPRESSION: 1. Obstructive uropathy with acute hydronephrosis and acute renal failure, stage V. Clinically continues to improve with adequate urine output. 2. Severe hypernatremia. Would recommend changing the IV fluid to D5. 3. Right-sided pleural effusion. Will monitor and observe closely. PLAN AND RECOMMENDATIONS: As dictated above. Will follow.
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
[2016-10-21 21:10] LABS: Glucose,Whole Blood 128 mg/dL (75-99)
[2016-10-21] MEDS: ULORIC 40MG TAB PO SCH (22:29)
[2016-10-21] MEDS: PIPERACILLIN-TAZOBACTAM 3.375 GM in DEXTROSE/WATER 1 50ML.BAG IVPB SCH (23:17)
--- NOTE | 2016-10-22 07:09 | PN ---
DATE OF SERVICE: 10/21/2016 PRESENTING COMPLAINT: Tired. INTERVAL HISTORY: This is a patient who presented with multiple problems including acute right lower lobe pneumonia, pleural effusion and obstructive uropathy. Patient has been moved out of the ICU. Did tolerate a diet. Has got a Poon catheter in place. Patient has been making good urine. Review of systems done for constitutional, cardiovascular, GI, pulmonary; relevant findings as above. The patient does feel tired. Patient did sit out of bed. Current medications are reviewed and include Norvasc, Flexeril, D5W at 50 mL/hour, Diflucan, Atrovent, Xopenex nebulizer, IV Zosyn, sodium bicarb, Flomax. On examination, temperature 98.9, pulse 80, respirations 16, blood pressure 140/73, pulse ox 93% on room air. GENERAL APPEARANCE: Obese, BMI of 42.1. Propped up in bed, not in distress. EYES: Pupils equal. Conjunctivae normal. NECK: JVD unable to assess. Mass not palpable. RESPIRATORY: Effort increased. LUNGS: Diminished breath sounds. CARDIOVASCULAR: Heart sounds muffled, some edema present. ABDOMEN: Distended, soft. Liver and spleen not palpable. LYMPHATIC: No lymph node palpable in neck or axillae. PSYCHIATRY: Alert and oriented x3. Mood and affect normal. INVESTIGATIONS: White count 10.1, hemoglobin 12.6, platelets 232. Sodium 152, potassium 4.4. BUN 51, creatinine 1.44. ASSESSMENT: 1. Acute right lower lobe pneumonia; suspect gram negative organism, possibly pleural effusion, and sepsis, causing acute hypoxic respiratory failure, present on admission. 2. Acute renal failure, likely prerenal/acute tubular necrosis and postobstructive present on admission with some improvement. 3. Acute hyperkalemia. 4. Acute metabolic encephalopathy, present on admission. 5. Hyperuricemia. 6. Acute rhabdomyolysis on presentation. 7. Morbid obesity, body mass index more than 45. 8. CODE STATUS: FULL. 9. Hyperlipidemia. 10. Benign prostatic hypertrophy. 11. Left-sided hydronephrosis. 12. Mild aortic aneurysm 4 cm. PLAN: Continue current medication and treatment plan. Follow I's and O's closely, they need to be matched. Patient is drinking quite a bit of water. The patient is also getting D5W. Keep a close eye on the labs. Poon catheter remains in place. Care was discussed with the patient.
[2016-10-22 07:33] LABS: Glucose,Whole Blood 112 mg/dL (75-99)
[2016-10-22] MEDS: INSULIN LISPRO (humaLOG) 300 UNIT/3 ML VIAL SQ SCH ×4 (08:03→21:41)
[2016-10-22] MEDS: SODIUM BICARBONATE TAB 650 MG TAB PO SCH (08:05)
[2016-10-22] MEDS: FLUCONAZOLE 100 MG TAB PO SCH (08:06)
[2016-10-22] MEDS: PANTOPRAZOLE 40 MG TABLET PO SCH ×2 (08:06→17:15)
[2016-10-22] MEDS: amLODIPine 5 MG TAB PO SCH (08:06)
[2016-10-22] MEDS: PIPERACILLIN-TAZOBACTAM 3.375 GM in DEXTROSE/WATER 1 50ML.BAG IVPB SCH ×3 (08:06→23:20)
[2016-10-22] MEDS: NYSTATIN 100,000 UNIT/ML SUSP 500,000 UNIT/5 ML CUP PO SCH ×4 (08:06→21:41)
[2016-10-22] MEDS: CYCLOBENZAPRINE 10 MG TAB PO SCH ×3 (08:06→22:43)
[2016-10-22] MEDS: HEPARIN SODIUM,PORCINE 5,000 UNIT/ML 1 ML VIAL SQ SCH ×2 (08:06→21:42)
[2016-10-22] MEDS: TAMSULOSIN 0.4 MG CAP.ER.24H PO SCH (08:06)
[2016-10-22 09:43] LABS: Basophils # (A) 0.1 k/uL (0-0.2); Basophils % (A) 1 %; CHCM 33.2; Eosinophils # (A) 0.4 k/uL (0-0.7); Eosinophils % (A) 4 %; HCT 39.9 % (39.0-53.0); HDW 2.94; Luc # (Auto) 0.25; Luc % (Auto) 2; Lymphocytes # (A) 2.2 k/uL (1.0-4.8); Lymphocytes % (A) 19 %; MCH 28.6 pg (25.0-35.0); MCHC 32.6 g/dL (31.0-37.0); MCV 87.8 fL (80.0-100.0); Monocytes # (A) 0.6 k/uL (0-1.0); Monocytes % (A) 5 %; Neutrophils # (A) 7.9 k/uL (1.3-7.7); Neutrophils % (A) 69 %; RBC 4.54 m/uL (4.30-5.90); RDW 13.7 % (11.5-15.5); WBC 11.3 k/uL (3.8-10.6); WBC (Perox) 11.52
[2016-10-22] MEDS: LEVALBUTEROL NEB (CONC) 1.25 MG/0.5 ML AMP INHALATION SCH ×3 (09:49→20:20)
[2016-10-22] MEDS: IPRATROPIUM 0.5 MG/2.5 ML NEBU INHALATION SCH ×3 (09:49→20:20)
[2016-10-22] MEDS: DEXTROSE 5% IN WATER 1,000 ML IV SCH (10:25)
[2016-10-22 10:27] LABS: ALT 54 U/L (21-72); AST 29 U/L (17-59); Alkaline Phosphatase 68 U/L (38-126); Anion Gap 9 mmol/L; Blood Urea Nitrogen 24 mg/dL (9-20); Calcium 8.6 mg/dL (8.4-10.2); Carbon Dioxide 24 mmol/L (22-30); Chloride 105 mmol/L (98-107); Glucose 156 mg/dL (74-99); Magnesium 1.7 mg/dL (1.6-2.3); Non-African American GFR(MDRD) >60 (>60 ml/min/1.73 sqM); Phosphorous 2.1 mg/dL (2.5-4.5); Potassium 4.3 mmol/L (3.5-5.1); Sodium 138 mmol/L (137-145); Total Bilirubin 0.5 mg/dL (0.2-1.3); Total Protein 6.2 g/dL (6.3-8.2)
--- NOTE | 2016-10-22 11:27 | P.PN ---
Subjective This patient is a 66-year-old male who is being evaluated and examined today on the fourth floor. The patient was admitted to the hospital from the ER with severe respiratory distress syndrome as well as hydronephrosis, acute renal failure, and urinary retention. VQ scan was performed and was indeterminate however the clinical probability of a DVT or PE is very low. The patient also had a chest ultrasound done which revealed a right pleural effusion pocket of 7.3 cm. Patient had an echo which revealed an EF of 60-65%. His renal function continues to improve. Upon examination the patient is alert and awake breathing comfortably on room air. Denies any significant cough or sputum production at this time. Objective - Vital Signs Vital signs: Vital Signs Temp 98.3 F 10/22/16 07:00 Pulse 81 10/22/16 07:00 Resp 18 10/22/16 07:00 BP 128/68 10/22/16 07:00 Pulse Ox 93 L 10/22/16 07:00 Intake & Output 10/21/16 10/22/16 10/22/16 18:59 06:59 18:59 Intake Total 1225 400 Output Total 1750 1600 Balance -525 -1200 Weight 121.8 kg 128.5 kg Intake: IV 100 0.9 100 Intake, IV Titration 225 Amount Azithromycin 500 mg In 125 Sodium Chloride 0.9% 250 ml @ 125 mls/hr IVPB DAILY [facility] Rx#:[id number] cefTRIAXone 1,000 mg In 100 Sodium Chloride 0.9% 50 ml @ 100 mls/hr IVPB Q24HR [facility] Rx#:[id number] Oral 900 400 Output: Urine 1750 1600 Other: Voiding Method Indwelling Catheter Indwelling Catheter # Bowel Movements 1 - Exam GENERAL EXAM: Alert, active, comfortable in no apparent distress. HEAD: Normocephalic. EYES: Normal reaction of pupils, equal size. NOSE: Clear with pink turbinates. THROAT: No erythema or exudates. NECK: No masses, no JVD. CHEST: No chest wall deformity. LUNGS: Equal air entry with no crackles, wheeze, rhonchi or dullness. Bases diminished CVS: S1 and S2 normal with no audible mumurs, regular rhythm. ABDOMEN: No hepatosplenomegaly, normal bowel sounds, no guarding or rigidity. EXTREMITIES: No edema noted, pedal pulses palpable. SKIN: No rashes CENTRAL NERVOUS SYSTEM: No focal deficits, tone is normal in all 4 extremities. - Labs CBC & Chem 7: 10/22/16 09:12 10/22/16 09:12 Labs: Abnormal Lab Results - Last 24 Hours (Table) 10/20/16 10/20/16 10/21/16 Range/Units 04:19 04:19 12:12 WBC (3.8-10.6) k/uL Neutrophils # (1.3-7.7) k/uL BUN (9-20) mg/dL Glucose (74-99) mg/dL POC Glucose (mg/dL) 135 H (75-99) mg/dL Hemoglobin A1c 6.7 H (4.2-6.1) % Phosphorus (2.5-4.5) mg/dL Total Protein (6.3-8.2) g/dL Albumin (3.5-5.0) g/dL Total PSA 35.8 H (0.1 - 4.0) ng/mL 10/21/16 10/21/16 10/22/16 Range/Units 17:20 21:08 07:30 WBC (3.8-10.6) k/uL Neutrophils # (1.3-7.7) k/uL BUN (9-20) mg/dL Glucose (74-99) mg/dL POC Glucose (mg/dL) 116 H 128 H 112 H (75-99) mg/dL Hemoglobin A1c (4.2-6.1) % Phosphorus (2.5-4.5) mg/dL Total Protein (6.3-8.2) g/dL Albumin (3.5-5.0) g/dL Total PSA (0.1 - 4.0) ng/mL 10/22/16 10/22/16 Range/Units 09:12 09:12 WBC 11.3 H (3.8-10.6) k/uL Neutrophils # 7.9 H (1.3-7.7) k/uL BUN 24 H (9-20) mg/dL Glucose 156 H (74-99) mg/dL POC Glucose (mg/dL) (75-99) mg/dL Hemoglobin A1c (4.2-6.1) % Phosphorus 2.1 L (2.5-4.5) mg/dL Total Protein 6.2 L (6.3-8.2) g/dL Albumin 2.9 L (3.5-5.0) g/dL Total PSA (0.1 - 4.0) ng/mL Microbiology - Last 24 Hours (Table) 10/19/16 23:15 Blood Culture - Preliminary Blood No Growth after 48 hours 10/20/16 02:20 Urine Culture - Final Urine,Catheterized Assessment and Plan Plan: Assessment Acute right lower lobe pneumonia suspect gram-negative Right-sided pleural effusion Obstructive uropathy with acute hydronephrosis Acute renal failure likely acute tubular necrosis with obstruction Acute rhabdomyolysis Hypernatremia Hyperkalemia Plan Medications have been reviewed and will be continued as ordered. We will continue to closely monitor his I's and O's. Continue the patient on D5W. Urology on consult as well as nephrology. Poon catheter to remain in place at this time. Continue to monitor the right-sided pleural effusion. Incentive spirometer initiated, continue pulmonary hygiene as well as nebulizer treatments. We will continue to monitor labs/results and adjust treatment as necessary. I performed an examination of the patient and discussed their management with the nurse practitioner. I have reviewed the nurse practitioner's note and agree with the documented findings and plan of care.
[2016-10-22 11:35] LABS: Glucose,Whole Blood 139 mg/dL (75-99)
--- NOTE | 2016-10-22 13:53 | XR ---
EXAMINATION TYPE: XR chest 1V portable DATE OF EXAM: 10/22/2016 10:48 AM COMPARISON: Prior chest x-ray October HISTORY: Pneumonia right lower lobe TECHNIQUE: Single frontal view of the chest is obtained. FINDINGS: There is some improvement in aeration in the right chest. No pneumothorax. Heart size is s table. Pulmonary vascularity and beata are unchanged. IMPRESSION: Improved aeration. There may be a small right pleural effusion and associated atelectasi s, correlate to exclude pneumonia.
--- NOTE | 2016-10-22 15:02 | PN ---
Patient is seen for followup for acute kidney injury. His renal function has improved significantly with serum creatinine now down to 1.1 from 11.9 g/dL on initial admission on 10/19/2016. He had significant urine retention and currently has an indwelling Poon catheter with good urine output. Patient was hypernatremic with serum sodium of about 152 yesterday as he was having significant urine output. He has been drinking large amounts of free water and hew as also started on a small amount of D5W at 50 mL/h yesterday. On examination today, patient is comfortable, awake, alert, oriented x3, not in any acute distress. Blood pressure is 128/68, heart rate 80 per minute. He is afebrile. Examination of the heart, S1 and S2. Examination of the lungs, bilateral breath sounds are heard. Abdomen is soft, nontender. Examination of the lower extremities shows no significant edema. CLINICAL CASE MANAGER exam is grossly intact. Labs show sodium 130, potassium 4.3, chloride 105, BUN 24, serum creatinine 1.1. ASSESSMENT: 1. Acute kidney injury secondary to obstructive uropathy, currently significantly improved. 2. Metabolic acidosis, now resolved, will decrease the sodium bicarb, as renal function has improved significantly. 3. Hypertension, currently stable. 4. Hypernatremia, improved with increase free water intake. The patient had been on D5W at 50 mL an hour which I will DC at this time. 5. Left lower pole renal mass for further imaging studies down the road. These can be done as outpatient. PLAN: DC IV fluids. Continue with indwelling Poon catheter. Follow up with Urology as outpatient. Patient has been evaluated by Dr. Sanders.
[2016-10-22 17:11] LABS: Glucose,Whole Blood 120 mg/dL (75-99)
[2016-10-22] MEDS ORDERED: ULORIC 40MG TAB PO SCH (21:00)
[2016-10-22 21:20] LABS: Glucose,Whole Blood 152 mg/dL (75-99)
--- NOTE | 2016-10-22 22:41 | PN ---
DATE OF SERVICE: 10/22/2016 INTERVAL HISTORY: This is a patient who presented with multiple problems including acute right lower lobe pneumonia, pleural effusion, obstructive uropathy, has been up to the bathroom 2 to 3 times, making good urine from the catheter. Tolerating diet. is at the bedside. Review of systems done for constitutional, cardiovascular, GI, pulmonary, relevant findings as above. Current medications include IV Zosyn. On examination, temperature 98.3, pulse 88, respirations 18, blood pressure 128/68, pulse ox 93% on room air. GENERAL APPEARANCE: Lying in bed, comfortable. EYES: Pupils equal. Conjunctivae normal. NECK: JVD unable to assess. Cranial nerves grossly intact. Mass not palpable. RESPIRATORY: Effort increased. LUNGS: Decreased breath sounds. CARDIOVASCULAR: Heart sounds muffled. No edema. ABDOMEN: Distended, soft. Liver and spleen not palpable. PSYCHIATRY: Alert and oriented x3. Mood and affect normal. INVESTIGATIONS: Sodium 138. BUN 25, creatinine 1.10, hemoglobin 13. ASSESSMENT: 1. Acute right lobe pneumonia, suspect gram-negative organism with some pleural effusion and sepsis, causing acute hypoxic respiratory failure, present on admission. 2. Acute renal failure, likely acute tubular necrosis and postobstructive, present on admission with significant improvement. 3. Acute hyperkalemia, improving. 4. Acute metabolic encephalopathy present at admission, resolved. 5. Hyperuricemia. 6. Acute rhabdomyolysis on presentation. 7. Morbid obesity, body mass index more than 45. 8. CODE STATUS: Full. 9. Hyperlipidemia. 10. Benign prostatic hypertrophy. 11. Left-sided hydronephrosis. 12. Mild abdominal aortic aneurysm 4 cm. 13. Metabolic acidosis now corrected. 14. Left lower pole renal mass further imaging down the road. 15. Outpatient sleep apnea workup. PLAN: Overall, the patient is doing much better. Renal function is greatly improved. Patient IV fluids have been discontinued. Patient will undergo further work-up with Dr. Sanders as an outpatient for bladder function. Care was discussed with the .
[2016-10-23 07:33] LABS: Glucose,Whole Blood 107 mg/dL (75-99)
[2016-10-23] MEDS: INSULIN LISPRO (humaLOG) 300 UNIT/3 ML VIAL SQ SCH ×3 (07:35→17:10)
[2016-10-23 07:42] VITALS: BP 138/88; RESP 16
[2016-10-23] MEDS: IPRATROPIUM 0.5 MG/2.5 ML NEBU INHALATION SCH ×2 (08:00→11:29)
[2016-10-23] MEDS: LEVALBUTEROL NEB (CONC) 1.25 MG/0.5 ML AMP INHALATION SCH ×2 (08:00→11:30)
[2016-10-23] MEDS: PANTOPRAZOLE 40 MG TABLET PO SCH (08:23)
[2016-10-23] MEDS: HEPARIN SODIUM,PORCINE 5,000 UNIT/ML 1 ML VIAL SQ SCH (08:23)
[2016-10-23] MEDS: CYCLOBENZAPRINE 10 MG TAB PO SCH ×2 (08:23→16:04)
[2016-10-23] MEDS: NYSTATIN 100,000 UNIT/ML SUSP 500,000 UNIT/5 ML CUP PO SCH ×2 (08:23→13:11)
[2016-10-23] MEDS: FLUCONAZOLE 100 MG TAB PO SCH (08:23)
[2016-10-23] MEDS: TAMSULOSIN 0.4 MG CAP.ER.24H PO SCH (08:23)
[2016-10-23] MEDS: amLODIPine 5 MG TAB PO SCH (08:23)
[2016-10-23] MEDS: PIPERACILLIN-TAZOBACTAM 3.375 GM in DEXTROSE/WATER 1 50ML.BAG IVPB SCH ×2 (08:28→16:04)
[2016-10-23 10:13] LABS: Basophils # (A) 0.1 k/uL (0-0.2); Basophils % (A) 1 %; CH 28.8; CHCM 33.5; Eosinophils # (A) 0.4 k/uL (0-0.7); Eosinophils % (A) 4 %; HCT 38.9 % (39.0-53.0); HDW 3.12; HGB 13.1 gm/dL (13.0-17.5); Luc # (Auto) 0.19; Luc % (Auto) 2; Lymphocytes # (A) 1.5 k/uL (1.0-4.8); Lymphocytes % (A) 13 %; MCHC 33.7 g/dL (31.0-37.0); MCV 86.2 fL (80.0-100.0); Mean Platelet Volume 6.8; Monocytes # (A) 0.4 k/uL (0-1.0); Monocytes % (A) 4 %; Neutrophils # (A) 8.3 k/uL (1.3-7.7); Neutrophils % (A) 77 %; RBC 4.51 m/uL (4.30-5.90); RDW 13.2 % (11.5-15.5); WBC 10.8 k/uL (3.8-10.6); WBC (Perox) 11.52
[2016-10-23 10:35] LABS: ALT 54 U/L (21-72); AST 30 U/L (17-59); Alkaline Phosphatase 58 U/L (38-126); Anion Gap 8 mmol/L; Blood Urea Nitrogen 20 mg/dL (9-20); Calcium 8.5 mg/dL (8.4-10.2); Carbon Dioxide 24 mmol/L (22-30); Chloride 106 mmol/L (98-107); Glucose 161 mg/dL (74-99); Magnesium 1.7 mg/dL (1.6-2.3); Non-African American GFR(MDRD) >60 (>60 ml/min/1.73 sqM); Phosphorous 2.3 mg/dL (2.5-4.5); Potassium 4.3 mmol/L (3.5-5.1); Sodium 138 mmol/L (137-145); Total Bilirubin 0.5 mg/dL (0.2-1.3); Total Protein 5.9 g/dL (6.3-8.2)
--- NOTE | 2016-10-23 11:07 | P.PN ---
Subjective This patient is a 66-year-old male who is being evaluated and examined today on the fourth floor. The patient was admitted to the hospital from the ER with severe respiratory distress syndrome as well as hydronephrosis, acute renal failure, and urinary retention. VQ scan was performed and was indeterminate however the clinical probability of a DVT or PE is very low. The patient also had a chest ultrasound done which revealed a right pleural effusion pocket of 7.3 cm. Patient had an echo which revealed an EF of 60-65%. His renal function continues to improve. Upon examination the patient is alert and awake breathing comfortably on room air. Denies any significant cough or sputum production at this time. The patient was put on BiPAP at night and he states it seemed to help him. The patient has been educated on the probability of him having obstructive sleep apnea and will require a sleep study in the outpatient setting. Objective - Vital Signs Vital signs: Vital Signs Temp 96.7 F L 10/23/16 07:00 Pulse 84 10/23/16 08:00 Resp 16 10/23/16 08:00 BP 138/88 10/23/16 07:00 Pulse Ox 94 L 10/23/16 07:00 Intake & Output 10/22/16 10/23/16 10/23/16 18:59 06:59 18:59 Intake Total 850 Output Total 2500 Balance -1650 Weight 127 kg Intake: Intake, IV Titration 50 Amount Piperacillin-Tazobactam 3 50 .375 gm In Dextrose/Water 1 50ml.bag @ 12.5 mls/hr IVPB Q8HR [facility] Rx#: [id number] Oral 800 Output: Urine 2500 Uretheral (Poon) 600 Other: Voiding Method Indwelling Catheter Indwelling Catheter # Bowel Movements 1 - Exam GENERAL EXAM: Alert, active, comfortable in no apparent distress. HEAD: Normocephalic. EYES: Normal reaction of pupils, equal size. NOSE: Clear with pink turbinates. THROAT: No erythema or exudates. NECK: No masses, no JVD. CHEST: No chest wall deformity. LUNGS: Equal air entry with no crackles, wheeze, rhonchi or dullness. Bases diminished CVS: S1 and S2 normal with no audible mumurs, regular rhythm. ABDOMEN: No hepatosplenomegaly, normal bowel sounds, no guarding or rigidity. EXTREMITIES: No edema noted, pedal pulses palpable. SKIN: No rashes CENTRAL NERVOUS SYSTEM: No focal deficits, tone is normal in all 4 extremities. - Labs CBC & Chem 7: 10/23/16 09:46 10/23/16 09:46 Labs: Abnormal Lab Results - Last 24 Hours (Table) 10/22/16 10/22/16 10/22/16 Range/Units 11:21 17:08 21:18 WBC (3.8-10.6) k/uL Hct (39.0-53.0) % Neutrophils # (1.3-7.7) k/uL Glucose (74-99) mg/dL POC Glucose (mg/dL) 139 H 120 H 152 H (75-99) mg/dL Phosphorus (2.5-4.5) mg/dL Total Protein (6.3-8.2) g/dL Albumin (3.5-5.0) g/dL 10/23/16 10/23/16 10/23/16 Range/Units 07:05 09:46 09:46 WBC 10.8 H (3.8-10.6) k/uL Hct 38.9 L (39.0-53.0) % Neutrophils # 8.3 H (1.3-7.7) k/uL Glucose 161 H (74-99) mg/dL POC Glucose (mg/dL) 107 H (75-99) mg/dL Phosphorus 2.3 L (2.5-4.5) mg/dL Total Protein 5.9 L (6.3-8.2) g/dL Albumin 2.8 L (3.5-5.0) g/dL Microbiology - Last 24 Hours (Table) 10/19/16 23:15 Blood Culture - Preliminary Blood No Growth after 72 hours Assessment and Plan Plan: Assessment Acute right lower lobe pneumonia suspect gram-negative Right-sided pleural effusion Obstructive uropathy with acute hydronephrosis Acute renal failure likely acute tubular necrosis with obstruction Acute rhabdomyolysis Hypernatremia Hyperkalemia Plan Medications have been reviewed and will be continued as ordered. Urology on consult as well as nephrology. Poon catheter to remain in place at this time. Continue to monitor the right-sided pleural effusion, requires no intervention at this time. Incentive spirometer initiated, continue pulmonary hygiene as well as nebulizer treatments. Continue with BiPAP at night. We will set up for an outpatient sleep study. We will continue to monitor labs/ results and adjust treatment as necessary. I performed an examination of the patient and discussed their management with the nurse practitioner. I have reviewed the nurse practitioner's note and agree with the documented findings and plan of care.
[2016-10-23 12:18] LABS: Glucose,Whole Blood 137 mg/dL (75-99)
--- NOTE | 2016-10-23 14:44 | PN ---
Patient is seen for followup for acute kidney injury. His renal function has improved significantly with creatinine down from 11 to 1.1 mg/dL. Patient had obstructive uropathy. He currently has an indwelling Poon catheter. He feels well and wants to go home. On examination, blood pressure is 138/88, heart rate 88 per minute. He is afebrile. Examination of the heart, S1 and S2. Examination of lungs, bilateral breath sounds are heard. No crackles or wheezing. Abdomen is soft, nontender, obese. Examination of lower extremities shows no evidence of edema. Labs show sodium 138, potassium 4.3. Hemoglobin 13.1, serum creatinine 1.12. ASSESSMENT: 1. Acute kidney injury, obstructive uropathy, currently resolved. 2. Hypertension, currently stable. 3. Hypernatremia, now improved. 4. Left renal mass on the left lower pole, for further imaging studies to be done as outpatient, status post evaluation by Urology. 5. Urine retention, currently with indwelling Poon catheter, maintained on Flomax and to follow up as outpatient with Urology. Patient is stable for discharge from nephrology standpoint.
[2016-10-23 15:57] VITALS: TEMP 98.6
[2016-10-23 16:28] VITALS: PULSE 84
[2016-10-23 17:04] LABS: Glucose,Whole Blood 120 mg/dL (75-99)
--- NOTE | 2016-10-24 07:58 | DS ---
DATE OF ADMISSION: 10/19/2016 DATE OF DISCHARGE: 10/23/2016 FINAL DIAGNOSES: 1. Acute right lower lobe pneumonia, suspect gram-negative organism with some pleural effusion hence causing sepsis and causing acute hypoxic respiratory failure, present on admission. 2. Acute renal failure, likely acute tubular necrosis and postobstructive, present on admission, with significant improvement. 3. Acute hyperkalemia on presentation, improved. 4. Acute metabolic encephalopathy, multifactorial from infection. 5. Hyperuricemia. 6. Acute rhabdomyolysis, present on admission. 7. Morbid obesity, body mass index 45. 8. CODE STATUS: FULL. 9. Hyperlipidemia. 10. Benign prostatic hypertrophy. 11. Left-sided hydronephrosis. 12. Mild abdominal aortic aneurysm 4 cm. 13. Metabolic acidosis, present on admission from renal failure, corrected. 14. Left lower pole renal mass further imaging outpatient by Dr. Sanders. 15. Outpatient sleep apnea workup. CONSULTATION: Dr. Barraza from nephrology; Dr. Tabor from pulmonary; Dr. Sanders from urology. HOSPITAL COURSE: This is a patient who presented with shortness of breath, found to have pneumonia. Treated for the same. Also found to be in renal failure with creatinine 11.90. By the time of discharge, it had come down to 1.12. Patient did have a CT scan of the chest, abdomen and pelvis showed ascending aorta mild aneurysm at 4 cm; some right-sided pleural effusion; moderate size fatty umbilical hernia. There was enlarged prostate. Also, there was a 3.2 cm possible mass of the left lower kidney. Patient was seen by Dr. Sanders and will be followed by him as an outpatient. By the time of discharge, tolerating a diet, overall doing much better. Renal function resolved. On exam, lungs are clear. CARDIOVASCULAR: First and second sounds normal. Outpatient workup for sleep apnea. DISCHARGE MEDICATIONS: 1. Tylenol 650 mg p.o. q.6 p.r.n. 2. Flexeril 10 mg p.o. t.i.d. 3. Krill Oil. 4. Multivitamin 1 tablet p.o. daily. 5. Norvasc 5 mg p.o. daily. 6. Augmentin 875, one tablet p.o. q.12 ten tablets. 7. Prilosec 20 mg with breakfast. 8. Flomax 0.4 mg with breakfast. Follow up with Dr. Ball in one week, Dr. Sanders in one week, Dr. John Tabor in one week. Outpatient sleep study by Dr. Tabor.
== END 2016-10-23 18:18 | disposition home or self-care (01) | DRG 871 ==
LOC: EC 10:37 → 6ICU 13:35 → 4MS4W 10-21 15:32
PROVIDERS: ADMIT Hospitalist; ATTEND Hospitalist
DX: A41.9 Sepsis, unspecified organism (principal); G93.41 Metabolic encephalopathy; J96.01 Acute respiratory failure with hypoxia; N17.0 Acute kidney failure with tubular necrosis; J15.6 Pneumonia due to other Gram-negative bacteria; J91.8 Pleural effusion in other conditions classified elsewhere; E87.0 Hyperosmolality and hypernatremia; B37.0 Candidal stomatitis; E87.2 Acidosis; M62.82 Rhabdomyolysis; N13.30 Unspecified hydronephrosis; N13.8 Other obstructive and reflux uropathy; E86.0 Dehydration; E83.39 Other disorders of phosphorus metabolism; E66.01 Morbid (severe) obesity due to excess calories; E78.5 Hyperlipidemia, unspecified; E87.5 Hyperkalemia; G47.33 Obstructive sleep apnea (adult) (pediatric); I71.4 Abdominal aortic aneurysm, without rupture; K14.0 Glossitis; K42.9 Umbilical hernia without obstruction or gangrene; N28.89 Other specified disorders of kidney and ureter; R31.9 Hematuria, unspecified; R32 Unspecified urinary incontinence; N40.1 Benign prostatic hyperplasia with lower urinary tract symptoms; E79.0 Hyperuricemia without signs of inflammatory arthritis and tophaceous disease; M54.9 Dorsalgia, unspecified; R59.0 Localized enlarged lymph nodes; I10 Essential (primary) hypertension; J45.30 Mild persistent asthma, uncomplicated; R33.9 Retention of urine, unspecified; R73.9 Hyperglycemia, unspecified; E86.9 Volume depletion, unspecified; Z68.42 Body mass index [BMI] 45.0-49.9, adult; Z79.899 Other long term (current) drug therapy; Z82.49 Family history of ischemic heart disease and other diseases of the circulatory system
CPT/HCPCS: 36415; 71010; 71020; 71250; 74176; 76604; 76770; 78582; 80048; 80051; 80053; 80061; 81001; 82550; 82553; 82570; 83036; 83735; 83880; 84100; 84153; 84156; 84484; 84550; 85025; 85379; 85610; 85730; 87040; 87086; 93005; 93306; 94640; 94660; 94760; 96365; 96375; 99291

== ENCOUNTER → 2016-11-15 | Outpatient (CLI) | payer MEDICARE ==
[2016-11-15 07:32] LABS: Blood Urea Nitrogen 13 mg/dL (9-20); Non-African American GFR(MDRD) >60 (>60 ml/min/1.73 sqM)
--- NOTE | 2016-11-15 09:26 | CT ---
EXAMINATION TYPE: CT abdomen wo/w con DATE OF EXAM: 11/15/2016 8:23 AM COMPARISON: 10/20/2016 HISTORY: Renal mass CT DLP: 2976.90 mGycm Automated exposure control for dose reduction was used. TECHNIQUE: Helical acquisition of images was performed from the lung bases through the top of iliac crest to include entire abdomen. CONTRAST: Performed with Oral Contrast and without and with IV Contrast, patient injected with 100 ml mL of Omn ipaque 300. FINDINGS: LUNG BASES: The previously described moderate right pleural effusion has entirely resolved in the int erim. A small amount of intrafissural fluid is seen within the left major fissure. Remainder the lung s are clear. LIVER/GB: No significant abnormality is appreciated. PANCREAS: No significant abnormality is seen. SPLEEN: No significant abnormality is seen. Splenule is again noted. ADRENALS: No significant abnormality is seen. KIDNEYS: The previously described hydronephrosis relates to numerous small peripelvic renal sinus cys ts as there is no evidence of calyceal dilation on the delayed images. Exophytically emanating from t he lower pole of the left kidney there is redemonstration of an approximately 2.8 cm hyperdense lesio n that on precontrast image measures a mean Hounsfield unit of 42 and on postcontrast image demonstra vania no appreciable enhancement within a mean Hounsfield unit of 45. This is most compatible with a hy perdense cyst either hemorrhagic or proteinaceous. Additionally cortically based within the right renal midpole there is a nonenhancing 1.5 cm slightly hyperdense renal cyst. BOWEL: No significant abnormality is seen. LYMPH NODES: No enlarged lymph nodes are seen within the abdomen. OSSEOUS STRUCTURES: No significant abnormality is seen. Mild degenerative changes are appreciated. N o suspicious osseous lesion. FREE AIR: No free air is visualized. OTHER: There is redemonstration of a fat filled umbilical hernia. Mild atherosclerosis is seen of the abdominal aorta. Abdominal aorta is of normal course and caliber. IMPRESSION: 1. PREVIOUSLY DESCRIBED HYDRONEPHROSIS RELATES TO NUMEROUS LEFT PERIPELVIC RENAL SINUS CYSTS THE C ALYCEAL SYSTEM IS NONDILATED ON DELAYED IMAGING. NO EVIDENCE OF HYDRONEPHROSIS OR OBSTRUCTIVE UROPATH Y BILATERALLY. 2. NONENHANCING EXOPHYTIC 2.8 CM COMPLEX PROTEINACEOUS OR HEMORRHAGIC LEFT RENAL CYST. 3. SIMPLE CORTICALLY BASED 1.5 CM RIGHT RENAL CYST. 4. COMPLETE RESOLUTION OF THE PREVIOUSLY SEEN RIGHT MODERATE PLEURAL EFFUSION.
== END | disposition home or self-care (01) ==
LOC: RADCTMAIN 06:54
PROVIDERS: ATTEND Urology
DX: N28.1 Cyst of kidney, acquired (principal)
CPT/HCPCS: 82565; 84520; 74170; 36415; Q9967

== ENCOUNTER → 2017-01-31 | Outpatient (CLI) | payer MEDICARE ==
--- NOTE | 2017-01-31 13:21 | XR ---
EXAMINATION TYPE: XR chest 2V DATE OF EXAM: 01/31/2017 COMPARISON: 10/22/2016 TECHNIQUE: PA and lateral views submitted. HISTORY: COPD FINDINGS: Heart is prominent. There is no consolidation. No pleural effusion or pneumothorax. No interstitial e eamon. Hypertrophic and degenerative change of the spine noted. Mild hyperexpansion. IMPRESSION: 1. Mild cardiomegaly.
[2017-02-05 11:29] LABS: Alternaria alternata IgE <0.35 kU/L (<0.35); Asperg. fumagatus IgE <0.35 kU/L (<0.35); Asperg. fumagatus IgE Class CLASS 0; Birch(Com.Silvr) IgE Class CLASS 0; Cat Epith & Dander IgE <0.35 kU/L (<0.35); Cat Epith & Dander IgE Class CLASS 0; Clad herbarum IgE <0.35 kU/L (<0.35); Clad herbarum IgE Class CLASS 0; Common Ragweed IgE Class CLASS 0; Dermato. Pteronyssinus Class CLASS 0; Dermato. Pteronyssinus IgE <0.35 kU/L (<0.35); Dermato. farinae IgE <0.35 kU/L (<0.35); Dermato. farinae IgE Class CLASS 0; IgE (Allergen) 21.9 IU/mL (<114.0); Maple (Box Elder) IgE <0.35 kU/L (<0.35); Maple (Box Elder) IgE Class CLASS 0; Mountain Cedar IgE <0.35 kU/L (<0.35); Mountain Cedar IgE Class CLASS 0; Mouse Urine IgE Class CLASS 0; Mouse Urine Proteins,IgE <0.35 kU/L (<0.35); Mulberry IgE Class CLASS 0; Nettle IgE <0.35 kU/L (<0.35); Nettle IgE Class CLASS 0; Oak IgE <0.35 kU/L (<0.35); Penicillium notatum IgE Class CLASS 0; Rough Marshelder IgE <0.35 kU/L (<0.35); Rough Marshelder IgE Class CLASS 0; Timothy Grass IgE <0.35 kU/L (<0.35); Timothy Grass IgE Class CLASS 0; White Ash IgE Class CLASS 0
== END | disposition home or self-care (01) ==
LOC: RADXRMAIN 12:52
PROVIDERS: ATTEND Internal Medicine Sleep Medicine
DX: I51.7 Cardiomegaly (principal); B44.89 Other forms of aspergillosis
CPT/HCPCS: 71020; 82785; 86001; 86003; 86606; 86609

== ENCOUNTER → 2017-08-21 | Outpatient (CLI) | payer MEDICARE ==
[2017-08-21 11:21] LABS: Basophils # (A) 0.1 k/uL (0-0.2); Basophils % (A) 1 %; Eosinophils # (A) 0.3 k/uL (0-0.7); Eosinophils % (A) 3 %; HCT 47.5 % (39.0-53.0); HGB 15.3 gm/dL (13.0-17.5); Lymphocytes # (A) 3.3 k/uL (1.0-4.8); Lymphocytes % (A) 33 %; MCH 28.3 pg (25.0-35.0); MCHC 32.2 g/dL (31.0-37.0); MCV 88.1 fL (80.0-100.0); Mean Platelet Volume 6.8; Monocytes # (A) 0.5 k/uL (0-1.0); Monocytes % (A) 5 %; Neutrophils # (A) 5.5 k/uL (1.3-7.7); Neutrophils % (A) 56 %; Platelet Count 244 k/uL (150-450); RDW 13.3 % (11.5-15.5); WBC 9.9 k/uL (3.8-10.6)
[2017-08-21 11:29] LABS: Anion Gap 12 mmol/L; Blood Urea Nitrogen 23 mg/dL (9-20); Calcium 9.9 mg/dL (8.4-10.2); Carbon Dioxide 28 mmol/L (22-30); Chloride 104 mmol/L (98-107); Glucose 176 mg/dL (74-99); Sodium 144 mmol/L (137-145)
== END | disposition home or self-care (01) ==
LOC: LABPAT 10:36
PROVIDERS: ATTEND Urology
DX: Z01.812 Encounter for preprocedural laboratory examination (principal); N40.1 Benign prostatic hyperplasia with lower urinary tract symptoms; R31.29 Other microscopic hematuria; Z79.899 Other long term (current) drug therapy
CPT/HCPCS: 36415; 80048; 85025; 87086

== ENCOUNTER 2017-08-28 08:11 | Day surgery (SDC) | payer MEDICARE ==
[2017-08-26 09:56] VITALS: BMI 45.4
[~2017-08-28 08:11] MED LIST: AMPICILLIN 2,000 MG in SODIUM CHLORIDE 0.9% 100 ML IVPB ONE; DEXAMETHASONE SOD PHOSPHATE 10 MG/ML 1 ML VIAL IV ONE; GENTAMICIN 120 MG in SODIUM CHLORIDE 0.9% 100 ML IVPB ONE; HYDROmorphone 0.5 MG/0.5 ML SYRINGE IVP PRN; LIDOCAINE 1% 20 ML VIAL (10MG/ML) FOR IV START INTRADERMA PRN; MIDAZOLAM 2 MG/2 ML VIAL IV PRN; ONDANSETRON 4 MG/2 ML VIAL IVP ONE; SCOPOLAMINE 1.5MG/72HR PATCH TRANSDERM ONE
[2017-08-28] MEDS: LACTATED RINGERS 1,000 ML IV SCH (09:38)
[2017-08-28] MEDS ORDERED: HYDROmorphone (PF) 1 MG/ML ONE (10:52)
[2017-08-28] MEDS ORDERED: MIDAZOLAM 2 MG/2 ML VIAL ONE (10:52)
[2017-08-28] MEDS ORDERED: fentaNYL (PF) 50 MCG/ML 2 ML AMP ONE (10:52)
[2017-08-28] MEDS ORDERED: PHENYLEPHRINE-0.9% NACL SYG 1 MG/10 ML SYRINGE ONE (10:52)
[2017-08-28] MEDS ORDERED: ePHEDrine SULFATE/0.9% NACL/PF 50 MG/5 ML SYRINGE IV ONE (10:52)
[2017-08-28] MEDS ORDERED: LACTATED RINGERS 1,000 ML IV ONE (11:40)
[2017-08-28] MEDS ORDERED: SODIUM CHLORIDE 0.9% IRRIGATIO 3,000 ML IRRIGATION ONE ×3 (14:34)
--- NOTE | 2017-08-28 14:40 | P.OP ---
Date of Procedure: 08/28/17 Preoperative Diagnosis: Urinary Retention Secondary to BPH Postoperative Diagnosis: Same Procedure(s) Performed: Cystoscopy, Bipolar Transurethral Resection of Prostate (TURP) Anesthesia: spinal Surgeon: Angelo Sanders Estimated Blood Loss (ml): 150 IV fluids (ml): 1,400 Pathology: other (Prostate chips) Condition: stable Disposition: PACU Indications for Procedure: The patient is a 67-year-old male who recently presented with urinary retention. A CMG suggested bladder recompensation. Cystoscopy shows obstructing BPH, with a large intravesical median lobe. CT scan imaging suggested the presence of a left renal mass, but a CT scan with contrast revealed this to be a hyperdense cyst. He is taking tamsulosin and finasteride but has failed multiple voiding trials. He has cardiac clearance and has elected to undergo a TURP. However, he understands that the retention may persist. Operative Findings: Trilobar BPH with large intravesical median lobe. Description of Procedure: The patient was taken in the operating room and placed in the dorsolithotomy position after being given a spinal anesthetic, The external genitalia was prepped and draped sterilely. The 25-[place]ian ACMI resectoscope sheath was introduced into the bladder. The bladder was inspected to a limited degree, as it was difficult to pass the beak of the resectoscope beyond the patient's large intravesical median lobe. The ureteral orifices were obscured. No tumors or foreign bodies were seen. There was evidence of catheter cystitis. Examination of the prostate revealed complete obstruction with a trilobar configuration, with a large intravesical median lobe. The prostate was very long, so much so that entry into the bladder was difficult.. Using the bipolar cutting loop, the lateral lobes were resected down to the surgical capsule. The floor of the prostate was then resected, proximal to the verumontanum. Lastly, any remaining anterior tissue was resected. The prostatic fossa was then carefully examined. The remaining apical tissue was then carefully resected. The resection was carried down to the surgical capsule in all 4 quadrants. The prostatic fossa was then carefully examined, and any areas of bleeding were controlled with electrocautery. Excellent hemostasis was attained. The resectoscope was withdrawn into the bulbous urethra. The external urinary sphincter remained intact. The prostatic fossa was open. The Madai evacuator was used to remove all prostate chips from the bladder. These were saved and sent for pathologic examination. The resectoscope was removed, and a 20 Colombian, 3-Way Poon catheter was placed. The return was essentially clear. Continuous bladder irrigation was started using 0.9 normal saline. The patient tolerated the procedure well was taken to the recovery room in stable condition. The procedure took approximately 3 hours to perform, due to the significant enlargement of the prostate. He remained stable throughout the procedure, without any hemodynamic instability or mental status changes.
[2017-08-28] MEDS ORDERED: ACETAMINOPHEN TAB 325 MG TAB PO PRN (15:34)
[2017-08-28] MEDS ORDERED: HYDROcodone/APAP 5-325MG 1 EACH TAB PO PRN ×2 (15:34)
[2017-08-28] MEDS ORDERED: MAG HYDROX/AL HYDROX/SIMETH 30 ML CUP PO PRN (15:34)
[2017-08-28] MEDS ORDERED: BELLADONNA-OPIUM 16.2-60 MG 1 EACH SUPP RECTAL PRN (15:34)
[2017-08-28] MEDS: DEXTROSE 5%-0.45% NACL 1,000 ML IV SCH (16:00)
[2017-08-28] MEDS ORDERED: SODIUM CHLORIDE 0.9% IRRIG 3,000 ML BAG IRRIGATION SCH (16:00)
[2017-08-28] MEDS: METOPROLOL TARTRATE 25 MG TAB PO SCH (22:56)
[2017-08-28] MEDS: CIPROFLOXACIN HCL 500 MG TAB PO SCH (22:56)
[2017-08-28] MEDS: DOCUSATE 100 MG CAP PO SCH (22:56)
[2017-08-29] MEDS: DEXTROSE 5%-0.45% NACL 1,000 ML IV SCH (04:32)
[2017-08-29] MEDS: LACTATED RINGERS 1,000 ML IV SCH (04:41)
[2017-08-29 08:10] VITALS: BP 108/58; PULSE 62; RESP 16; TEMP 97.6
[2017-08-29] MEDS: DOCUSATE 100 MG CAP PO SCH (08:58)
[2017-08-29] MEDS: CIPROFLOXACIN HCL 500 MG TAB PO SCH (08:58)
[2017-08-29] MEDS: METOPROLOL TARTRATE 25 MG TAB PO SCH (08:59)
[2017-08-29] MEDS ORDERED: FINASTERIDE 5 MG TAB PO SCH (09:00)
--- NOTE | 2017-08-29 12:53 | P.DS ---
Providers Expected date of discharge: 08/29/17 Attending physician: Angelo Sanders Primary care physician: [facility] Course: On the day of admission, the patient underwent an uncomplicated bipolar TURP. The perioperative course was unremarkable. He remained afebrile with stable vital signs. On the first postoperative day, the patient was comfortable and his urine was clear. He was subsequently discharged home with a Poon catheter. Procedures: Cystoscopy, bipolar transurethral resection of prostate (TURP) on August 28, 2017. Patient Condition at Discharge: Good Plan - Discharge Summary Discharge Rx Participant: Yes New Discharge Prescriptions: No Action Multivitamins, Thera [Multivitamin (formulary)] 1 tab PO DAILY Krill Oil 500 mg PO DAILY Metoprolol Tartrate [Lopressor] 25 mg PO BID Finasteride [Proscar] 5 mg PO DAILY Glucosam/Chond/Hyalu/Cf Borate [Move Free Joint Health Tablet] 1 each PO DAILY Ciprofloxacin [Cipro Susp] 500 mg PO BID Aspirin [Adult Low Dose Aspirin EC] 81 mg PO DAILY Discharge Medication List Krill Oil 500 mg PO DAILY 09/30/16 [History] Multivitamins, Thera [Multivitamin (formulary)] 1 tab PO DAILY 09/30/16 [History ] Aspirin [Adult Low Dose Aspirin EC] 81 mg PO DAILY 08/26/17 [History] Ciprofloxacin [Cipro Susp] 500 mg PO BID 08/26/17 [History] Finasteride [Proscar] 5 mg PO DAILY 08/26/17 [History] Glucosam/Chond/Hyalu/Cf Borate [Move Free Joint Health Tablet] 1 each PO DAILY 08/26/17 [History] Metoprolol Tartrate [Lopressor] 25 mg PO BID 08/26/17 [History] Follow up Appointment(s)/Referral(s): Angelo Sanders MD [STAFF PHYSICIAN] - 1 Week Activity/Diet/Wound Care/Special Instructions: Discharge home with Poon catheter. Plenty of oral fluids. Hold aspirin and multivitamin. No lifting or straining. Discharge Disposition: HOME SELF-CARE
== END 2017-08-29 14:32 | disposition home or self-care (01) ==
LOC: OR 08:11 → 3SUR 14:22 → OR 08-29 14:32
PROVIDERS: ATTEND Urology
DX: N40.1 Benign prostatic hyperplasia with lower urinary tract symptoms (principal); R33.8 Other retention of urine; N13.8 Other obstructive and reflux uropathy; R97.20 Elevated prostate specific antigen [PSA]; D41.02 Neoplasm of uncertain behavior of left kidney; N28.1 Cyst of kidney, acquired; I11.0 Hypertensive heart disease with heart failure; I50.30 Unspecified diastolic (congestive) heart failure; E66.01 Morbid (severe) obesity due to excess calories; Z68.42 Body mass index [BMI] 45.0-49.9, adult; G47.33 Obstructive sleep apnea (adult) (pediatric); N19 Unspecified kidney failure; K75.9 Inflammatory liver disease, unspecified; M54.9 Dorsalgia, unspecified; G89.29 Other chronic pain; Z82.49 Family history of ischemic heart disease and other diseases of the circulatory system; Z79.82 Long term (current) use of aspirin; Z79.899 Other long term (current) drug therapy; Z87.891 Personal history of nicotine dependence
CPT/HCPCS: 94760; 88305; 84132; 52601; S0138; J2250; J1580; J1100; J2405; J3010; J0290; J1170; J2370

== ENCOUNTER 2018-04-13 12:52 | Emergency (ER) | payer MEDICARE ==
[2018-04-13 13:04] VITALS: BP 144/72; PULSE 60; RESP 18; TEMP 96.7
[2018-04-13] MEDS ORDERED: KETOROLAC 60 MG/2 ML VIAL IM STA (13:34)
[2018-04-13] MEDS ORDERED: ORPHENADRINE 30 MG/ML 2 ML VIAL IM STA (13:34)
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
--- NOTE | 2018-04-13 14:22 | XR ---
EXAM TYPE: LUMBAR SPINE X RAY SERIES COMPARISON: NONE HISTORY: Pain TECHNIQUE: 4 views are submitted. FINDINGS: Alignment is anatomic. The pedicles are intact. The transverse processes are intact. There is hype rtrophic and degenerative changes at all levels. Multilevel degenerative disc disease and facet arthr opathy with most marked findings at L3-S1. IMPRESSION: 1. Multilevel degenerative disc disease and facet arthropathy.
--- NOTE | 2018-04-13 14:22 | XR ---
EXAMINATION TYPE: XR knee complete RT DATE OF EXAM: 04/13/2018 COMPARISON: NONE HISTORY: pain TECHNIQUE: Four views are submitted. FINDINGS: Severe narrowing the medial compartment the knee joint with hypertrophic spurring. Moderate narrowing patellofemoral joint. No erosive changes. Osseous structures are intact. No acute fracture seen. IMPRESSION: 1. No acute fracture or dislocation. On the frontal view there is a single linear lucency along the medial margin of the patella which may be related to soft tissue overlap as it is not seen on the oth er views. Correlate with point tenderness. If warranted CT scan could be obtained. 2. Severe osteoarthritis.
== END 2018-04-13 14:48 | disposition home or self-care (01) ==
LOC: EC 12:52
DX: M17.11 Unilateral primary osteoarthritis, right knee (principal); M54.41 Lumbago with sciatica, right side; M47.896 Other spondylosis, lumbar region; I10 Essential (primary) hypertension; G47.30 Sleep apnea, unspecified; Z79.82 Long term (current) use of aspirin; Z79.899 Other long term (current) drug therapy
CPT/HCPCS: 72100; 73562; 99284; 96372 ×2; J2360; J1885

== ENCOUNTER → 2019-05-26 | Outpatient (CLI) | payer MEDICARE, BC ==
--- NOTE | 2019-05-26 15:58 | US ---
EXAMINATION TYPE: US thyroid st tissue head/neck DATE OF EXAM: 05/26/2019 COMPARISON: NONE CLINICAL HISTORY: R22.1 Localized swelling, mass and lump, neck. Left lateral neck/jaw lump x 1.5 yea rs, comes and goes. Patient states it is not painful. TECHNIQUE/FINDINGS: Targeted grayscale and color ultrasound was performed of the area of the palpable abnormality of the left lateral neck/jaw. Area of palpable scanned. Superficial avascular circular lesion seen - 1.2 x 1.0 x 0.8 cm. There is suggestion that this is a complex cystic mass as there is increased through transmission on numerous images. This is seen just deep to the skin surface. Contralateral image taken. IMPRESSION: Palpable abnormality of the left neck/jaw corresponds to a 1.2 cm complex avascular cyst ic mass. Sebaceous cyst is a consideration. CT neck with contrast could evaluate for any abnormal enh ancement.
== END | disposition home or self-care (01) ==
LOC: RADUSWWP 15:15
PROVIDERS: ATTEND Nurse Practitioner Family
DX: R22.1 Localized swelling, mass and lump, neck (principal)
CPT/HCPCS: 76536

== ENCOUNTER 2019-07-29 06:14 | Day surgery (SDC) | payer BC, MEDICARE ==
[~2019-07-29 06:14] MED LIST changes: +ALPRAZolam 0.25 MG TAB PO PRN; +ALPRAZolam 0.5 MG TAB PO PRN; -AMPICILLIN 2,000 MG in SODIUM CHLORIDE 0.9% 100 ML IVPB ONE; +ASPIRIN 325 MG TAB PO STA; +ATORVASTATIN 80 MG TAB PO STA; -DEXAMETHASONE SOD PHOSPHATE 10 MG/ML 1 ML VIAL IV ONE; -GENTAMICIN 120 MG in SODIUM CHLORIDE 0.9% 100 ML IVPB ONE; -HYDROmorphone 0.5 MG/0.5 ML SYRINGE IVP PRN; -LIDOCAINE 1% 20 ML VIAL (10MG/ML) FOR IV START INTRADERMA PRN; -MIDAZOLAM 2 MG/2 ML VIAL IV PRN; +NITROGLYCERIN SL TABS 0.4 MG TAB SUBLINGUAL PRN; -ONDANSETRON 4 MG/2 ML VIAL IVP ONE; -SCOPOLAMINE 1.5MG/72HR PATCH TRANSDERM ONE; +SODIUM CHLORIDE 0.9% 1,000 ML in EMPTY BAG 1 BAG IV ONE
[2019-07-29] MEDS ORDERED: fentaNYL (PF) 50 MCG/ML 2 ML AMP ONE (07:27)
[2019-07-29] MEDS ORDERED: HEPARIN SODIUM 1,000 UN/ML (10ML VL) ONE (07:27)
[2019-07-29] MEDS ORDERED: VERAPAMIL 2.5 MG/ML 2 ML AMP ONE (07:27)
[2019-07-29] MEDS ORDERED: LIDOCAINE 1% INJ 10MG/ML (20 ML MDV) ONE (07:27)
[2019-07-29 07:28] LABS: Basophils # (A) 0.1 k/uL (0-0.2); Basophils % (A) 1 %; Eosinophils # (A) 0.2 k/uL (0-0.7); Eosinophils % (A) 3 %; HCT 42.6 % (39.0-53.0); HGB 14.6 gm/dL (13.0-17.5); Lymphocytes # (A) 2.6 k/uL (1.0-4.8); Lymphocytes % (A) 27 %; MCH 29.7 pg (25.0-35.0); MCHC 34.3 g/dL (31.0-37.0); MCV 86.6 fL (80.0-100.0); Mean Platelet Volume 7.9; Monocytes # (A) 0.6 k/uL (0-1.0); Monocytes % (A) 6 %; Neutrophils # (A) 5.9 k/uL (1.3-7.7); Neutrophils % (A) 62 %; Platelet Count 235 k/uL (150-450); RBC 4.92 m/uL (4.30-5.90); RDW 13.3 % (11.5-15.5); WBC 9.6 k/uL (3.8-10.6)
[2019-07-29 07:45] LABS: Calcium 9.4 mg/dL (8.4-10.2); Potassium 4.7 mmol/L (3.5-5.1)
[2019-07-29] MEDS ORDERED: fentaNYL (PF) 50 MCG/ML 2 ML AMP IV ONE (07:52)
[2019-07-29] MEDS ORDERED: MIDAZOLAM 2 MG/2 ML VIAL IV ONE (07:52)
[2019-07-29] MEDS ORDERED: LIDOCAINE 1% INJ 10MG/ML (20 ML MDV) SQ ONE (07:53)
[2019-07-29] MEDS: VERAPAMIL SYRINGE (5 MG/10 ML) INTRAARTER ONE ×2 (07:55→09:37)
[2019-07-29] MEDS ORDERED: HEPARIN SODIUM 1,000 UN/ML (10ML VL) IV ONE (07:57)
--- NOTE | 2019-07-29 08:28 | P.CARDCATH ---
Date of Procedure: 07/29/19 Preoperative Diagnosis: Positive stress test, hypertension, smoking and family history, and preop clearance Postoperative Diagnosis: Critical lesion involving the mid LAD and moderate to severe disease involving the proximal LAD Procedure(s) Performed: Left heart catheterization without left ventriculography Description of Procedure: HISTORY: This is a 69-year-old gentleman with a history of hypertension, obesity and smoking who was sent recently to our office for preop clearance. Patient had a nuclear stress test. This showed evidence of ischemia involving the apex and inferoapical segments. Patient is advised to have a cardiac catheterization for definitive diagnosis. CONSENT:I have discussed the risks, benefits and alternative therapies for the above-mentioned procedure and for both sedation/analgesia as well as necessary blood product administration, if indicated, as they pertain to this patient. The patient has indicated understanding and acceptance of the risks and procedures discussed. [] PROCEDURE: Patient was brought to the lab in a fasting state. Patient was given some IV sedation. The right wrist is infiltrated with lidocaine and right radial artery was entered using Seldinger technique. A 6-Bermudian catheter was left in place and selective coronary arteriography was performed. Patient tolerated the procedure well. TR band was applied for hemostasis. No immediate complications were noted and patient was transferred to [facility] in a stable condition Conscious Sedation: Versed 2mg Fentanyl 50 g Duration 20 minutes HEMODYNAMICS:. The aortic pressure is 139/81. At the end diastolic pressure of the left ventricle is not measured SELECTIVE CORONARY ARTERIOGRAPHY: LEFT MAIN: Normal length and free of occlusive disease THE LEFT ANTERIOR DESCENDING CORONARY ARTERY:. This is a fair caliber vessel with a moderate to severe disease involving the occipital LAD with about 60-70% stenosis. There is about 90% stenosis of the mid LAD after the second diagonal branch. There is disease involving the origin of the diagonal branch with about 70-80% stenosis THE LEFT CIRCUMFLEX AND IS CORONARY ARTERY:. This is a moderate caliber vessel giving rise to good-sized PLV branch. The circumflex and its branches are free of occlusive disease. THE RIGHT CORONARY ARTERY: This is a dominant vessel giving rise to PDA and PLV branches. It has mild diffuse plaque without any Sigmund focal lesions LEFT VENTRICULOGRAPHY: Not performed FINAL IMPRESSION: Moderate to severe disease involving the proximal LAD and a critical lesion involving the mid LAD. There is also critical lesion in the second diagonal PLAN: Stent placement of the LAD probably at both sites. Films to be reviewed by Dr. Ybarra PROGNOSIS: Fair
[2019-07-29] MEDS ORDERED: BIVALIRUDIN 250 MG in SODIUM CHLORIDE 0.9% 50 ML IV ONE (09:24)
[2019-07-29] MEDS ORDERED: BIVALIRUDIN BOLUS 250 MG/50 ML IV ONE (09:24)
[2019-07-29] MEDS ORDERED: CLOPIDOGREL 75 MG TAB ONE (09:28)
[2019-07-29] MEDS ORDERED: CLOPIDOGREL 75 MG TAB PO ONE (09:32)
[2019-07-29] MEDS ORDERED: NITROGLYCERIN 1000MCG/10ML SYRINGE INTRACORON ONE (09:35)
[2019-07-29] MEDS ORDERED: IOPAMIDOL-370 125ML BTL INJ ONE (09:40)
[2019-07-29] MEDS ORDERED: ACETAMINOPHEN TAB 325 MG TAB PO PRN (09:43)
--- NOTE | 2019-07-29 10:12 | LTR ---
DATE OF SERVICE: 07/29/2019 RE: Chloe Robbins Dear Dr. Hull: Mr. Chloe Robbins underwent today a heart catheterization by Dr. Roy and that revealed critical disease involving the mid LAD. He underwent successful stenting of the LAD with an excellent angiographic results and without any complication. Thank you for allowing us to participate in his care and please do not hesitate to call if you have any question or concern. Sincerely, MD YANN Rowley / ALEXANDRAN: [id number] /
[2019-07-29] MEDS ORDERED: RX INFO: IV CONTRAST WAS GIVEN 1 EACH MISC MISCELLANE PRN (10:22)
[2019-07-29] MEDS ORDERED: ATROPINE SULFATE 0.1 MG/ML 10ML SYRINGE IV PRN (10:22)
[2019-07-29] MEDS ORDERED: ZOLPIDEM 5 MG TAB PO PRN (10:22)
[2019-07-29] MEDS ORDERED: MAG HYDROX/AL HYDROX/SIMETH 30 ML CUP PO PRN (10:22)
[2019-07-29] MEDS ORDERED: NITROGLYCERIN SL TABS 0.4 MG TAB SUBLINGUAL PRN (10:22)
--- NOTE | 2019-07-29 10:23 | PTCA ---
PERCUTANEOUSTRANS CORORONARY ANGIOGRAPHY PERCUTANEOUS CORONARY INTERVENTION: DATE OF SERVICE: 07/29/2019 PERFORMING PHYSICIAN: Jeffrey Al MD. PROCEDURE PERFORMED: Successful stenting of the mid LAD using 3.0 x 18 mm Xience MED with an excellent angiographic results and reduction of stenosis from 80% to 0%. INDICATION: This is a 69-year-old gentleman who sees Dr. Roy in the office as an outpatient with obesity, hypertension, and significant family history of coronary artery disease who was going to undergo noncardiac surgery. The patient was going to undergo a hernia surgery. Stress test was performed and revealed reversible defect. Because of that, he underwent a heart catheterization by Dr. Roy. The heart catheterization revealed severe disease involving the mid LAD. The decision was made toward percutaneous coronary intervention. APPROACH: Right radial artery. COMPLICATION: None. LEVEL OF SEDATION: Moderate with sedation length of 18 minutes. PROCEDURE DESCRIPTION: Please refer to the diagnostic heart catheterization that was performed by Dr. Roy earlier today. Anticoagulation was initiated using Angiomax. Subsequently, I did engage the left main using JL3.5 guide. I did wire the LAD using a run-through wire. Predilatation was performed using 2.5 x 12 mm balloon before I deployed a 3.0 x 18 mm Xience MED where the stent was positioned under fluoroscopy guidance and deployed under 12 atmospheres for 20 seconds. The following angiogram showed excellent angiographic results and the procedure was completed without any complication. POSTPROCEDURE MANAGEMENT: 1. Dual anti-platelet therapy. 2. Risk factors modifications. 3. Follow up with the patient. MMODL / IJN: [id number] /
[2019-07-29] MEDS ORDERED: SODIUM CHLORIDE 0.9% 1,000 ML IV SCH (10:30)
[2019-07-29 13:58] VITALS: BMI 47.2
[2019-07-29] MEDS: METOPROLOL TARTRATE 25 MG TAB PO SCH (20:43)
[2019-07-30 06:26] LABS: Basophils # (A) 0.1 k/uL (0-0.2); Basophils % (A) 1 %; Eosinophils # (A) 0.3 k/uL (0-0.7); Eosinophils % (A) 3 %; HGB 14.8 gm/dL (13.0-17.5); Lymphocytes # (A) 2.4 k/uL (1.0-4.8); Lymphocytes % (A) 25 %; MCH 29.9 pg (25.0-35.0); MCHC 34.4 g/dL (31.0-37.0); MCV 87.1 fL (80.0-100.0); Mean Platelet Volume 7.5; Monocytes # (A) 0.5 k/uL (0-1.0); Monocytes % (A) 5 %; Neutrophils # (A) 6.1 k/uL (1.3-7.7); Neutrophils % (A) 64 %; Platelet Count 221 k/uL (150-450); RBC 4.94 m/uL (4.30-5.90); RDW 13.3 % (11.5-15.5); WBC 9.5 k/uL (3.8-10.6)
[2019-07-30 06:34] LABS: African American GFR (CKD) >90 (>60 ml/min/1.73 sqM); Anion Gap 7 mmol/L; Blood Urea Nitrogen 20 mg/dL (9-20); Calcium 9.3 mg/dL (8.4-10.2); Carbon Dioxide 25 mmol/L (22-30); Chloride 107 mmol/L (98-107); Glucose 102 mg/dL (74-99); Non-African American GFR(CKD) 82 (>60 ml/min/1.73 sqM); Potassium 4.5 mmol/L (3.5-5.1); Sodium 139 mmol/L (137-145)
[2019-07-30] MEDS ORDERED: CLOPIDOGREL 75 MG TAB PO SCH (08:00)
[2019-07-30] MEDS ORDERED: ASPIRIN 81 MG PO SCH (09:00)
[2019-07-30] MEDS ORDERED: ATORVASTATIN 20 MG TAB PO SCH (09:00)
[2019-07-30] MEDS ORDERED: METHYLSULFONYLMETHANE 1000 MG PO SCH (09:00)
[2019-07-30] MEDS ORDERED: MEGA RED PO SCH (09:00)
[2019-07-30] MEDS ORDERED: LIPOZENE PO SCH (09:00)
[2019-07-30] MEDS ORDERED: DOCUSATE 100 MG CAP PO SCH (09:00)
[2019-07-30] MEDS ORDERED: MULTIVITAMINS, THERA 1 EACH TAB PO SCH (09:00)
[2019-07-30] MEDS: METOPROLOL TARTRATE 25 MG TAB PO SCH (09:04)
[2019-07-30 09:16] VITALS: BP 135/79; PULSE 53; RESP 16; TEMP 97.6
--- NOTE | 2019-07-30 13:08 | DS ---
DISCHARGE SUMMARY Mr. Chloe Robbins is a 69-year-old gentleman. Mr. Robbins underwent mid LAD stenting yesterday by Dr. Al, patient of Dr. Roy. He is doing well post procedure, no symptoms. Right radial cath site is clean and dry. Vitals are stable. Labs and EKG are unremarkable. JVD is not evident. S1, S2 heard normally. Distant heart sounds. Lungs are clear. Abdomen is soft. Lower extremities reveal diminished pulses. No edema. Central nervous system is normal. Plan is to discharge Mr. Robbins and he will see Dr. Roy in 7 to 10 days and in the interim he will not return to work. Discharge instructions regarding activity, diet and dual antiplatelet therapy were given. Prescriptions were written. MMAKIKOL / ALEXANDRAN: [id number] /
[2019-07-31] MEDS ORDERED: LOSARTAN 25 MG TAB PO SCH (09:00)
== END 2019-07-30 11:34 | disposition home or self-care (01) ==
LOC: CATHCVL 06:14 → 3SCARD 09:37 → CATHCVL 07-30 11:34
PROVIDERS: ATTEND Internal Medicine Cardiovascular Disease
DX: I25.10 Atherosclerotic heart disease of native coronary artery without angina pectoris (principal); I13.0 Hypertensive heart and chronic kidney disease with heart failure and stage 1 through stage 4 chronic kidney disease, or unspecified chronic kidney disease; N18.9 Chronic kidney disease, unspecified; I50.32 Chronic diastolic (congestive) heart failure; R94.39 Abnormal result of other cardiovascular function study; E78.00 Pure hypercholesterolemia, unspecified; E66.9 Obesity, unspecified; Z68.42 Body mass index [BMI] 45.0-49.9, adult; N13.9 Obstructive and reflux uropathy, unspecified; Z82.49 Family history of ischemic heart disease and other diseases of the circulatory system; Z79.82 Long term (current) use of aspirin; Z79.899 Other long term (current) drug therapy; Z72.0 Tobacco use
CPT/HCPCS: 93454; 80048 ×2; 85025 ×2; C9600; C1887; C1725; C1769 ×2; C1874; C1894; J2250; J2001; J3010; J1644; J0583; Q9967

== ENCOUNTER → 2019-09-07 | Outpatient (CLI) | payer MEDICARE ==
[2019-09-07 17:11] LABS: Albumin 4.6 g/dL (3.80-4.90); Albumin/Globulin Ratio 2.42 (1.60-3.17); Bilirubin, Conjugated 0.2 mg/dL (0.20-0.40); Bilirubin,Unconjugated 0.4 mg/dL; Chol/HDL Ratio 4.26; Globulin 1.9 g/dL (1.6-3.3); LDL Cholesterol,Calculated 82.2 mg/dL (0.0-131.0); Total Bilirubin 0.6 mg/dL (0.3-1.2); Total Protein 6.5 g/dL (6.2-8.2); VLDL Calculation 18.8 mg/dL (5.00-40.00)
== END | disposition home or self-care (01) ==
LOC: LABWHC1 08:11
PROVIDERS: ATTEND Internal Medicine Cardiovascular Disease
DX: I25.10 Atherosclerotic heart disease of native coronary artery without angina pectoris (principal); E78.5 Hyperlipidemia, unspecified
CPT/HCPCS: 36415; 80061; 80076

== ENCOUNTER → 2020-06-27 | Outpatient (CLI) | payer MEDICARE | END | disposition home or self-care (01) | LOC: LABWHC1 10:57 | PROVIDERS: ATTEND Urology | DX: R97.20 Elevated prostate specific antigen [PSA] (principal) | CPT/HCPCS: 36415; 84153; 84154 ==

== ENCOUNTER → 2020-09-04 | Outpatient (CLI) | payer MEDICARE ==
--- NOTE | 2020-09-04 10:37 | US ---
EXAMINATION TYPE: US venous doppler duplex LE LT DATE OF EXAM: 09/04/2020 10:20 AM COMPARISON: NONE CLINICAL HISTORY: R22.42 Localized swelling. Pt states lump left medial thigh, pt states previous bru ise in area of palpable (has now resolved) SIDE PERFORMED: Left TECHNIQUE: The lower extremity deep venous system is examined utilizing real time linear array sonog lakia with graded compression, doppler sonography and color-flow sonography. VESSELS IMAGED: Common Femoral Vein Deep Femoral Vein Greater Saphenous Vein * Femoral Vein Popliteal Vein Small Saphenous Vein * Proximal Calf Veins (* superficial vessels) Left Leg: Negative for DVT, left medial thigh in area of pt's lump there is a complex area= 2.3 x 1. 2 x 2.7 cm, no blood flow within. This could be a resolving hematoma as patient states there was a p revious bruise in area of patient's palpable abnormality. IMPRESSION: 1. No ultrasound evidence of left lower extremity deep venous ultrasound. 2. At the palpable region there is a complex collection could be a resolving hematoma.
== END | disposition home or self-care (01) ==
LOC: RADUSWWP 09:53
PROVIDERS: ATTEND Family Medicine
DX: R22.42 Localized swelling, mass and lump, left lower limb (principal)

== ENCOUNTER → 2020-12-26 | Outpatient (CLI) | payer MEDICARE | END | disposition home or self-care (01) | LOC: LABWHC1 13:07 | PROVIDERS: ATTEND Urology | DX: R97.20 Elevated prostate specific antigen [PSA] (principal) | CPT/HCPCS: 36415; 84153 ==

== ENCOUNTER → 2023-02-25 | Outpatient (CLI) | payer MEDICARE | END | disposition home or self-care (01) | LOC: LABWHC1 12:32 | PROVIDERS: ATTEND Urology | DX: R97.20 Elevated prostate specific antigen [PSA] (principal) | CPT/HCPCS: 36415; 84153 ==

== ENCOUNTER → 2023-04-19 | Outpatient (CLI) | payer MEDICARE ==
--- NOTE | 2023-04-19 10:52 | MR ---
EXAMINATION TYPE: MR Prostate wo/w con DATE OF EXAM: 04/19/2023 9:16 AM COMPARISON: None. CLINICAL INDICATION:Male, 73 years old with history of R97.20 ELEVATED PSA; Elevated PSA, history of biopsy TECHNIQUE: Multi-planar, multi-sequence imaging of the pelvis is performed prior to and following the uncomplicated administration of bolus intravenous gadolinium. CONTRAST: 13 Gadavist Interpretive Criteria: PI-RADS v2.1 SERUM PSA: 11.0 on 02/25/2023. 18.9 on 09/02/2022. 6.57 on 02/12/2022. SURGICAL PATHOLOGY: Left lateral apex pathology GABRIELA on 03/23/2021. FINDINGS: Prostatic dimensions: 4.8 x 3.3 x 4.1 cm. "Bullet" Volume:41.47 (PSA density=0.27 ng/mL/mL) Post TURP changes to the prostate gland. CENTRAL GLAND (Central and Transition Zones/CZ+TZ): Postprocedural changes throughout the central gland. Multiple bilateral, heterogenous appearing hyper trophic stromal nodules, without suspicious lesion. (PI-RADS 2) PERIPHERAL ZONE (PZ): Left anterior peripheral zone mid gland 13 x 10 mm area of restricted diffusion with low T2 signal (P I-RADS 4) with early arterial enhancement. SEMINAL VESICLES (SV): Symmetric and unremarkable. PERIPROSTATIC TISSUES: Unremarkable. LYMPH NODES: No enlarged pelvic lymph node. REMAINING PELVIS: Bladder wall is within normal limits given distention. No abnormal free or organized intrapelvic fluid collection. No pathologic bowel dilation or mural thickening. No hernia visualized OSSEOUS STRUCTURES: No suspicious osseous abnormality. IMPRESSION: 1. PI-RADS 4 lesion in the Left anterior peripheral gland at the mid gland measuring up to 13 x 10 mm . 2. Mild BPH, estimated gland volume 41.47 mL. 3. No suspicious osseous lesion. No lymphadenopathy. No evidence of prostate adenocarcinoma involving the periprostatic tissues.
== END | disposition home or self-care (01) ==
LOC: RADMRIMAIN 07:49
PROVIDERS: ATTEND Urology
DX: N40.0 Benign prostatic hyperplasia without lower urinary tract symptoms (principal); R97.20 Elevated prostate specific antigen [PSA]
CPT/HCPCS: 72197; A9585

== ENCOUNTER → 2023-06-04 | Outpatient (CLI) | payer MEDICARE ==
[2023-06-04 19:16] LABS: Basophils # (A) 0.07 X 10*3/uL (0.00-0.10); Basophils % (A) 0.9 %; Eosinophils # (A) 0.25 X 10*3/uL (0.04-0.35); Eosinophils % (A) 3.2 %; HGB 15.4 g/dL (13.0-17.0); Lymphocytes % (A) 30.7 %; MCH 29.7 pg (27.0-32.0); MCHC 33.5 g/dL (32.0-37.0); MCV 88.6 FL (80.0-97.0); Mean Platelet Volume 10.3 FL (9.5-12.2); Monocytes # (A) 0.57 X 10*3/uL (0.20-1.00); Monocytes % (A) 7.3 %; NRBC Per 100 WBC 0 X 10*3/uL (0.00-0.01); Neutrophils # (A) 4.51 X 10*3/uL (1.80-7.70); Neutrophils % (A) 57.5 %; Platelet Count 204 X 10*3/uL (140-440); RBC 5.19 X 10*6/uL (4.40-5.60); RDW 13.4 % (11.5-14.5); WBC 7.83 X 10*3/uL (4.50-10.00)
[2023-06-04 20:26] LABS: Blood Urea Nitrogen 20.4 mg/dL (9.0-27.0); Calcium 9.9 mg/dL (8.7-10.3); Carbon Dioxide 24.6 mmol/L (21.6-31.8); Chloride 104 mmol/L (96-109); Glucose 188 mg/dL (70-110); Potassium 4.8 mmol/L (3.5-5.5); Sodium 138 mmol/L (135-145)
== END | disposition home or self-care (01) ==
LOC: LABPAT 14:15
PROVIDERS: ATTEND Urology
DX: Z01.812 Encounter for preprocedural laboratory examination (principal); R97.20 Elevated prostate specific antigen [PSA]
CPT/HCPCS: 80048; 85025

== ENCOUNTER 2023-06-12 09:50 | Day surgery (SDC) | payer MEDICARE ==
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
[~2023-06-12 09:50] MED LIST changes: -ALPRAZolam 0.25 MG TAB PO PRN; -ALPRAZolam 0.5 MG TAB PO PRN; -ASPIRIN 325 MG TAB PO STA; -ATORVASTATIN 80 MG TAB PO STA; +GENTAMICIN 80 MG/2 ML (MDV) VIAL IM ONE; +HYDROmorphone 0.5 MG/0.5 ML SYRINGE IVP PRN; +LACTATED RINGERS 1,000 ML IV SCH; +LEVOFLOXACIN 500MG-D5W PMX 500 MG in DEXTROSE/WATER 1 100ML.BAG IVPB STA; -NITROGLYCERIN SL TABS 0.4 MG TAB SUBLINGUAL PRN; +ONDANSETRON 4 MG/2 ML VIAL IVP ONE; -SODIUM CHLORIDE 0.9% 1,000 ML in EMPTY BAG 1 BAG IV ONE
[2023-06-12 11:31] VITALS: TEMP 97.9
[2023-06-12] MEDS ORDERED: KETAMINE HCL IN 0.9 % NACL 50 MG/5 ML SYRINGE ONE (11:50)
[2023-06-12] MEDS ORDERED: PROPOFOL 10 MG/ML 20 ML VIAL IV ONE (11:50)
--- NOTE | 2023-06-12 12:17 | P.OP ---
Date of Procedure: 06/12/23 Preoperative Diagnosis: Elevated PSA level Postoperative Diagnosis: Same Procedure(s) Performed: MRI ultrasound guided fusion biopsies of the prostate Anesthesia: MAC Surgeon: Angelo Sanders Estimated Blood Loss (ml): 5 IV fluids (ml): 100 Pathology: other (Prostate biopsies) Condition: stable Disposition: PACU Indications for Procedure: The patient is a 73-year-old white male with no family history of prostate cancer. His PSA level has been elevated and was most recently 11.0. He underwent a prostate ultrasound with biopsies in March 2021. His prostate volume was 42 mL, and biopsies were negative. Previously, he underwent a TURP in 2018. MRI of the prostate shows a 41.5 mL prostate with a PI-RADS 4 lesion in the left anterior peripheral zone, measuring 10 x 13 mm. Operative Findings: No hypoechoic lesions seen on ultrasound. Description of Procedure: The patient was taken to the operating room and placed in the left lateral decubitus position. The Hubbub transrectal ultrasound probe was placed intrarectally. It was then placed within the stand of the [employer] MRI/TRUS Fusion for Prostate Biopsy system. The prostate was imaged in both the axial and sagittal planes, revealing a prostate volume of 43 mL. Using the Biopty gun, 3 biopsies were obtained from the left mid transitional zone target lesion. The remaining 12 biopsies of the peripheral zone were obtained utilizing a standard template. Once the procedure was completed, the ultrasound probe was removed. The patient tolerated the procedure well was taken to the recovery room stable condition.
[2023-06-12 12:40] VITALS: RESP 16
[2023-06-12 13:02] VITALS: BP 114/73; PULSE 65
== END 2023-06-12 12:59 | disposition home or self-care (01) ==
LOC: OR 09:50
PROVIDERS: ATTEND Urology
DX: R97.20 Elevated prostate specific antigen [PSA] (principal); E11.9 Type 2 diabetes mellitus without complications; H91.90 Unspecified hearing loss, unspecified ear; I10 Essential (primary) hypertension; M19.90 Unspecified osteoarthritis, unspecified site; N42.9 Disorder of prostate, unspecified; F10.90 Alcohol use, unspecified, uncomplicated; I25.10 Atherosclerotic heart disease of native coronary artery without angina pectoris; E66.01 Morbid (severe) obesity due to excess calories; G47.33 Obstructive sleep apnea (adult) (pediatric); Z79.899 Other long term (current) drug therapy; Z83.3 Family history of diabetes mellitus; Z82.49 Family history of ischemic heart disease and other diseases of the circulatory system; Z79.82 Long term (current) use of aspirin; Z79.02 Long term (current) use of antithrombotics/antiplatelets; Z95.5 Presence of coronary angioplasty implant and graft; Z90.79 Acquired absence of other genital organ(s)
CPT/HCPCS: 55700; 76942; 88344; 88305; J2405; J1956; J1580; J2704

== ENCOUNTER → 2023-08-05 | Outpatient (CLI) | payer MEDICARE | END | disposition home or self-care (01) | LOC: LABWHC1 14:39 | PROVIDERS: ATTEND Radiology Radiation Oncology | DX: C61 Malignant neoplasm of prostate (principal) | CPT/HCPCS: 36415; 84153 ==

== ENCOUNTER → 2023-08-22 | Outpatient (CLI) | payer MEDICARE ==
--- NOTE | 2023-08-24 16:38 | PE ---
EXAMINATION TYPE: PET CT fusion skull to thigh DATE OF EXAM: 08/22/2023 COMPARISON: No recent pertinent CT exam Prior PET/CT: None at this location HISTORY: Prostate cancer TECHNIQUE: Following the intravenous administration of 6.75 mCi of gallium 68 Illucix PSMA, whole kayy dy images are performed from the skull base to the midthigh. Images are reviewed on the computer in the coronal, axial, and sagittal planes. Reconstructed rotating images are created on independent [employer] and reviewed on the computer. A localization and attenuation correction CT is performed i n conjunction with the PET scan. DLP: 1143.54 mGycm SCAN: Initial FINDINGS: NECK: Normal visualization of the salivary glands. No suspicious uptake to suggest metastatic diseas e THORAX: No suspicious uptake ABDOMEN: No suspicious uptake PELVIS: Suspicious uptake not identified. There is of tracer within the urinary bladder which appears to extend into the urethra. Central and l eft paracentral uptake within the inferior left prostate would be difficult to separate. Example imag e 241, SUV 14.97. Some minimal posterior prostate uptake bilaterally may be present, example 236 SUV in the range of 8. Focal uptake to identify patient's known prostate cancer not otherwise evident. OSSEOUS STRUCTURES: No abnormal uptake LOCALIZATION CT: No suspicious focal abnormality COMPARISON: None IMPRESSION: 1. No suspicious uptake to suggest metastatic prostate cancer. 2. Patient's primary prostate cancer difficult to differentiate from normal radiotracer within the ur inary bladder and urethra.
== END | disposition home or self-care (01) ==
LOC: RADPETMAIN 11:59
PROVIDERS: ATTEND Radiology Radiation Oncology
DX: C61 Malignant neoplasm of prostate (principal)
CPT/HCPCS: 78815; A9596

== ENCOUNTER → 2023-08-26 | Outpatient (CLI) | payer MEDICARE ==
[2023-08-26 18:18] LABS: Basophils # (A) 0.06 X 10*3/uL (0.00-0.10); Basophils % (A) 0.6 %; Eosinophils # (A) 0.29 X 10*3/uL (0.04-0.35); Eosinophils % (A) 2.9 %; HGB 15.1 g/dL (13.0-17.0); Lymphocytes # (A) 2.63 X 10*3/uL (0.90-5.00); Lymphocytes % (A) 26.4 %; MCH 28.8 pg (27.0-32.0); MCHC 33.6 g/dL (32.0-37.0); MCV 85.9 FL (80.0-97.0); Mean Platelet Volume 10.2 FL (9.5-12.2); Monocytes # (A) 0.75 X 10*3/uL (0.20-1.00); Monocytes % (A) 7.5 %; NRBC Per 100 WBC 0 X 10*3/uL (0.00-0.01); Neutrophils # (A) 6.19 X 10*3/uL (1.80-7.70); Neutrophils % (A) 62.2 %; Platelet Count 208 X 10*3/uL (140-440); RBC 5.24 X 10*6/uL (4.40-5.60); RDW 13.2 % (11.5-14.5); WBC 9.96 X 10*3/uL (4.50-10.00)
[2023-08-26 18:41] LABS: BUN/Creat Ratio 15.42 Ratio (12.00-20.00); Blood Urea Nitrogen 18.5 mg/dL (9.0-27.0); Carbon Dioxide 20.8 mmol/L (21.6-31.8); Chloride 104 mmol/L (96-109); Glucose 167 mg/dL (70-110); Potassium 4.4 mmol/L (3.5-5.5); Sodium 139 mmol/L (135-145)
== END | disposition home or self-care (01) ==
LOC: LABPAT 15:02
PROVIDERS: ATTEND Urology
DX: Z01.812 Encounter for preprocedural laboratory examination (principal); C61 Malignant neoplasm of prostate
CPT/HCPCS: 80048; 85025

== ENCOUNTER 2023-09-04 09:31 | Day surgery (SDC) | payer MEDICARE ==
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
[~2023-09-04 09:31] MED LIST changes: +DEXAMETHASONE SOD PHOSPHATE 4 MG/ML 1 ML VIAL IV ONE; -GENTAMICIN 80 MG/2 ML (MDV) VIAL IM ONE; -LACTATED RINGERS 1,000 ML IV SCH; -LEVOFLOXACIN 500MG-D5W PMX 500 MG in DEXTROSE/WATER 1 100ML.BAG IVPB STA; -ONDANSETRON 4 MG/2 ML VIAL IVP ONE
[2023-09-04] MEDS: ONDANSETRON 4 MG/2 ML VIAL IVP ONE (10:10)
[2023-09-04] MEDS: LACTATED RINGERS 1,000 ML IV SCH (10:10)
[2023-09-04 10:35] VITALS: TEMP 97.4
[2023-09-04 10:35] LABS: Glucose,Whole Blood 133 mg/dL (70-110)
[2023-09-04] MEDS: ceFAZolin 3 GM in SODIUM CHLORIDE 0.9% 100 ML IVPB PRN (10:40)
[2023-09-04] MEDS ORDERED: PROPOFOL 10 MG/ML 20 ML VIAL IV ONE (10:41)
[2023-09-04] MEDS ORDERED: KETAMINE HCL IN 0.9 % NACL 50 MG/5 ML SYRINGE ONE (10:41)
[2023-09-04] MEDS ORDERED: MIDAZOLAM 2 MG/2 ML VIAL ONE (10:41)
[2023-09-04] MEDS: LIDOCAINE 2% (PF) 20 MG/ML 10 ML AMP SQ ONE (10:59)
[2023-09-04 11:04] LABS: Albumin 4.1 g/dL (3.5-5.0); Bilirubin, Delta 0.1 mg/dL (0.0-0.2); Bilirubin,Unconjugated 0.4 mg/dL (0.0-1.1); Total Bilirubin 0.5 mg/dL (0.2-1.3); Total Protein 6.6 g/dL (6.3-8.2)
--- NOTE | 2023-09-04 11:07 | P.OP ---
Date of Procedure: 09/04/23 Preoperative Diagnosis: Adenocarcinoma of the prostate Postoperative Diagnosis: Same Procedure(s) Performed: SpaceOAR implant Anesthesia: MAC Surgeon: Angelo Sanders Estimated Blood Loss (ml): 5 IV fluids (ml): 100 Pathology: none sent Condition: stable Disposition: PACU Indications for Procedure: The patient is a 73-year-old white male with no family history of prostate cancer. His PSA level has been elevated and was most recently 11.0. He underwent a prostate ultrasound with biopsies in March 2021. His prostate volume was 42 mL, and biopsies were negative. Previously, he underwent a TURP in 2018. MRI of the prostate shows a 41.5 mL prostate with a PI-RADS 4 lesion in the left anterior peripheral zone, measuring 10 x 13 mm. Biopsies of the target lesion showed Loco 7 (3+4) adenocarcinoma of the prostate. He elected to be treated with radiation therapy. He was seen by Dr. Martínez and is scheduled to begin IMRT soon. He will not receive ADT. Operative Findings: 13.2 mm separation created between prostate and rectum. Description of Procedure: The patient was taken to the operating room and placed in the dorsolithotomy position, with his legs supported in J Luis stirrups. The external genitalia was prepped and draped sterilely. The [employer] transrectal ultrasound probe was placed intrarectally. The prostate was imaged. The probe was then placed within the stabilizing stand. A spinal needle was advanced under ultrasonic guidance to the level of the urogenital diaphragm, and lidocaine was used to infiltrate the tissues as the needle was withdrawn. Next, the SpaceOAR needle was passed through the midline of the perineum, 1-2 cm anterior to the anal opening. The needle was slowly advanced under ultrasonic guidance until the needle tip was located within the fat plane between the prostate and rectum, at the level of the mid prostate gland. The needle was confirmed to be midline on the axial imaging. A small amount of normal saline was injected for hydrodiss ection. Next, the SpaceOAR components were mixed and loaded into the Y connector per protocol. The Y connector was then connected to the needle, and the components were injected slowly over a course of approximately 12 seconds. A total of 10 ml was injected. Significant distance was created between the prostate and rectum, as desired. It should be noted that at no point was there any concern of rectal perforation. The needle was withdrawn, as well as the transrectal ultrasound probe, and the procedure was terminated. The patient tolerated the procedure well and was taken to the recovery room in stable condition.
[2023-09-04 11:39] VITALS: RESP 18
[2023-09-04 12:11] VITALS: BP 138/75; PULSE 67
== END 2023-09-04 12:01 | disposition home or self-care (01) ==
LOC: OR 09:31
PROVIDERS: ATTEND Urology
DX: C61 Malignant neoplasm of prostate (principal); E11.9 Type 2 diabetes mellitus without complications; F17.210 Nicotine dependence, cigarettes, uncomplicated; Z90.79 Acquired absence of other genital organ(s); Z83.3 Family history of diabetes mellitus; Z82.49 Family history of ischemic heart disease and other diseases of the circulatory system; Z79.82 Long term (current) use of aspirin; Z79.02 Long term (current) use of antithrombotics/antiplatelets; Z79.899 Other long term (current) drug therapy
CPT/HCPCS: 80076; 84403; 55874; C1889; J2250; J2001; J0690; J2405; J2704

== ENCOUNTER → 2023-10-28 | Outpatient (CLI) | payer MEDICARE ==
[2023-10-28 16:23] LABS: Prostate Specific Antigen 6.95 ng/mL (0.000-6.500); Testosterone 18.8 ng/dL (86.98-780.10)
== END | disposition home or self-care (01) ==
LOC: LABWHC1 10:27
PROVIDERS: ATTEND Radiology Radiation Oncology
DX: C61 Malignant neoplasm of prostate (principal); Z80.42 Family history of malignant neoplasm of prostate
CPT/HCPCS: 36415; 84153; 84403

== ENCOUNTER → 2023-12-12 | Outpatient (CLI) | payer MEDICARE ==
[2023-12-12 19:44] LABS: Prostate Specific Antigen 1.33 ng/mL (0.000-6.500); Testosterone 16.8 ng/dL (86.98-780.10)
== END | disposition home or self-care (01) ==
LOC: LABWHC1 12:39
PROVIDERS: ATTEND Radiology Radiation Oncology
DX: C61 Malignant neoplasm of prostate (principal); Z84.2 Family history of other diseases of the genitourinary system
CPT/HCPCS: 36415; 84153; 84403

== ENCOUNTER → 2024-01-27 | Outpatient (CLI) | payer MEDICARE ==
[2024-01-27 19:35] LABS: Basophils # (A) 0.05 X 10*3/uL (0.00-0.10); Basophils % (A) 0.7 %; Eosinophils # (A) 0.22 X 10*3/uL (0.04-0.35); Eosinophils % (A) 3.2 %; HCT 39.8 % (39.6-50.0); HGB 13.8 g/dL (13.0-17.0); Lymphocytes # (A) 1.59 X 10*3/uL (0.90-5.00); Lymphocytes % (A) 23.1 %; MCH 30.3 pg (27.0-32.0); MCHC 34.7 g/dL (32.0-37.0); MCV 87.5 FL (80.0-97.0); Mean Platelet Volume 9.8 FL (9.5-12.2); Monocytes # (A) 0.66 X 10*3/uL (0.20-1.00); Monocytes % (A) 9.6 %; NRBC Per 100 WBC 0 X 10*3/uL (0.00-0.01); Neutrophils # (A) 4.34 X 10*3/uL (1.80-7.70); Neutrophils % (A) 63.1 %; Platelet Count 189 X 10*3/uL (140-440); RBC 4.55 X 10*6/uL (4.40-5.60); RDW 13.7 % (11.5-14.5); WBC 6.88 X 10*3/uL (4.50-10.00)
[2024-01-27 21:15] LABS: ALT 39 U/L (10-49); AST 25 U/L (14-35); Albumin 4.4 g/dL (3.8-4.9); Albumin/Globulin Ratio 1.83 Ratio (1.60-3.17); Alkaline Phosphatase 73 U/L (41-126); BUN/Creat Ratio 24.47 Ratio (12.00-20.00); Blood Urea Nitrogen 36.7 mg/dL (9.0-27.0); Calcium 9.9 mg/dL (8.7-10.3); Carbon Dioxide 18.2 mmol/L (21.6-31.8); Chloride 106 mmol/L (96-109); Chol/HDL Ratio 3.38 Ratio; Globulin 2.4 g/dL (1.6-3.3); Glucose 149 mg/dL (70-110); LDL Cholesterol,Calculated 83.7 mg/dL (0.0-131.0); Potassium 4.4 mmol/L (3.5-5.5); Sodium 139 mmol/L (135-145); Total Bilirubin 0.4 mg/dL (0.3-1.2); Total Protein 6.8 g/dL (6.2-8.2); VLDL Calculation 18.42 mg/dL (5.00-40.00)
== END | disposition home or self-care (01) ==
LOC: LABWHC1 13:02
PROVIDERS: ATTEND Internal Medicine Interventional Cardiology
DX: Z00.00 Encounter for general adult medical examination without abnormal findings (principal); E11.9 Type 2 diabetes mellitus without complications; E78.2 Mixed hyperlipidemia; E78.00 Pure hypercholesterolemia, unspecified
CPT/HCPCS: 36415; 80053; 80061; 82306; 83036; 84439; 84443; 85025

== ENCOUNTER → 2024-02-13 | Outpatient (CLI) | payer MEDICARE ==
[2024-02-13 16:24] LABS: African American GFR (CKD) 82 (>60 ml/min/1.73 sqM); Blood Urea Nitrogen 23 mg/dL (9-20); Non-African American GFR(CKD) 71 (>60 ml/min/1.73 sqM)
--- NOTE | 2024-03-07 21:58 | CT ---
EXAMINATION TYPE: CT angio chest DATE OF EXAM: 02/13/2024 COMPARISON: PET/CT 08/22/2023 HISTORY: 73-year-old male I71.20 Thoracic aortic aneurysm. TECHNIQUE: Contiguous axial scanning of the chest before and after the administration of 100 cc mL of Isovue 370. Coronal/sagittal reconstructions performed. 3-D reconstructions generated on a [employer] workstation. CT DLP: 1727.9mGycm. Automatic exposure control utilized for a dose reduction. FINDINGS: The heart is normal size without pericardial effusion. Three-vessel coronary artery calcifications ar e present. Mild aortic valvular calcifications. Ectatic aortic root at 3.8 cm, unchanged. Mild aneurysm ascending aorta 4.3 cm unchanged. Bovine configuration to the aortic arch. Ectatic upper descending thoracic aorta at 3.2 cm, unchanged. Ectatic lower descending thoracic aorta at 2.9 cm versus 2.8 cm, previously. No evidence for aortic dissection. 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 Mildly enlarged caliber main right and left pulmonary arteries up to 2.8 cm may reflect underlying pu lmonary arterial hypertension. No thoracic lymphadenopathy by CT size criteria. Dependent atelectasis is within the lung bases. No consolidation or pleural effusion. The previous ri ght pleural effusion has resolved. Visualized upper abdomen shows no gross abnormality. DISH throughout the thoracic spine. Advanced degenerative changes right glenoid humeral joint. IMPRESSION: 1. Unchanged aneurysmal ascending aorta at 4.3 cm. 2. Three-vessel coronary artery calcifications. Possible underlying pulmonary arterial hypertension. 3. DISH throughout the thoracic spine.
== END | disposition home or self-care (01) ==
LOC: RADCTMAIN 15:36
PROVIDERS: ATTEND Internal Medicine Interventional Cardiology
DX: I71.21 Aneurysm of the ascending aorta, without rupture (principal); I25.10 Atherosclerotic heart disease of native coronary artery without angina pectoris; M51.34 Other intervertebral disc degeneration, thoracic region
CPT/HCPCS: 82565; 84520; 71275; Q9967

== ENCOUNTER → 2024-03-18 | Outpatient (CLI) | payer MEDICARE ==
[2024-03-18 18:21] LABS: Basophils # (A) 0.04 X 10*3/uL (0.00-0.10); Basophils % (A) 0.7 %; Eosinophils # (A) 0.25 X 10*3/uL (0.04-0.35); Eosinophils % (A) 4.3 %; HCT 37.4 % (39.6-50.0); HGB 12.5 g/dL (13.0-17.0); Lymphocytes # (A) 1.18 X 10*3/uL (0.90-5.00); Lymphocytes % (A) 20.4 %; MCHC 33.4 g/dL (32.0-37.0); MCV 89.9 FL (80.0-97.0); Monocytes # (A) 0.52 X 10*3/uL (0.20-1.00); NRBC Per 100 WBC 0 X 10*3/uL (0.00-0.01); Neutrophils # (A) 3.77 X 10*3/uL (1.80-7.70); Neutrophils % (A) 65.3 %; Platelet Count 159 X 10*3/uL (140-440); RBC 4.16 X 10*6/uL (4.40-5.60); RDW 13.2 % (11.5-14.5); WBC 5.78 X 10*3/uL (4.50-10.00)
[2024-03-18 23:13] LABS: ALT 35 U/L (10-49); AST 22 U/L (14-35); Albumin 4.2 g/dL (3.8-4.9); Albumin/Globulin Ratio 1.91 Ratio (1.60-3.17); Alkaline Phosphatase 73 U/L (41-126); BUN/Creat Ratio 21.08 Ratio (12.00-20.00); Blood Urea Nitrogen 25.3 mg/dL (9.0-27.0); Carbon Dioxide 19.8 mmol/L (21.6-31.8); Chloride 108 mmol/L (96-109); Globulin 2.2 g/dL (1.6-3.3); Glucose 177 mg/dL (70-110); Potassium 4.4 mmol/L (3.5-5.5); Prostate Specific Antigen 0.36 ng/mL (0.000-6.500); Sodium 139 mmol/L (135-145); Total Bilirubin 0.3 mg/dL (0.3-1.2); Total Protein 6.4 g/dL (6.2-8.2)
== END | disposition home or self-care (01) ==
LOC: LABWHC1 11:59
PROVIDERS: ATTEND Radiology Radiation Oncology
DX: C61 Malignant neoplasm of prostate
CPT/HCPCS: 36415; 80053; 84153; 84403; 85025

== ENCOUNTER → 2024-09-21 | Outpatient (CLI) | payer MEDICARE ==
[2024-09-21 19:07] LABS: Prostate Specific Antigen 0.48 ng/mL (0.000-6.500)
== END | disposition home or self-care (01) ==
LOC: LABWHC1 14:25
PROVIDERS: ATTEND Radiology Radiation Oncology
DX: C61 Malignant neoplasm of prostate (principal); Z80.42 Family history of malignant neoplasm of prostate
CPT/HCPCS: 36415; 84153; 84403